=== PATIENT | male | born 1935 | race Caucasian/White ===

== ENCOUNTER 2016-08-24 10:57 | Inpatient (IN) | payer MEDICARE ==
[~2016-08-24] VITALS: Ht 180.3 cm; Wt 86.3 kg
[~2016-08-24 10:57] MED LIST: ACET-654 PO; ASPI1TAB PO; CARV3.12 PO; CARV6.25 PO; DOXA1TAB71 PO; DOXY100C PO; EPOG2000 INJ; FOSR1000 PO; HYDR-4267 PO; IPRA6SP; ISOS30TA4 PO; LISI-538 PO; LISI10TA4 PO; NEPHTA PO; NEPRLIQ3 PO; NITR4TASL SL; PANT40TA2 PO; PROM125TA PO; RENA800T7 PO; SENN-23 PO; SENN8.6T7 PO; SERT25TA85 PO; SODI650T PO; VITA-121 PO; VITA100066 PO; VITATAB11 PO
[2016-08-24] MEDS ORDERED: ONDANSETRON 4MG/2ML VIAL (J2405) As Ordered ONE (11:08)
[2016-08-24 11:28] LABS: BASO % 0.6 % (0.0-1.0); EOS # 0.3 K/mm3 (0.0-0.50); EOS % 3.4 % (0.0-3.0); LARGE UNSTAINED CELL # 0.2 K/mm3 (0.0-0.4); LARGE UNSTAINED CELL % 1.7 % (0.0-4.0); LYMPH # 0.8 K/mm3 (1.5-4.5); MEAN CORPUSCULAR HEMOGLOBIN 34.8 pg (27.0-33.0); MEAN CORPUSCULAR HGB CONC 33.2 g/dl (32.0-36.5); MONO # 0.6 K/mm3 (0.0-0.8); MONO % 6.6 % (0.0-5.0); NEUTROPHILS # 7.4 K/mm3 (1.8-7.7); NEUTROPHILS % 80.8 % (36.0-66.0); PLATELET COUNT, AUTOMATED 229 k/mm3 (150-450); RED CELL DISTRIBUTION WIDTH 15.4 % (11.5-14.5); WHITE BLOOD COUNT 9.1 K/mm3 (4.0-10.0)
--- NOTE | 2016-08-24 11:32 | REP ---
Chest one-view HISTORY: Chest pain Comparison: 05/29/2016 The lungs are clear. The heart is normal in size. The pulmonary vasculature is normal in appearance. A catheter is present in the superior vena cava. Impression: No acute disease. Signed by Jerad Sibley MD 08/24/2016 11:24 A
[2016-08-24 11:48] LABS: CALCIUM LEVEL 8.4 MG/DL (8.8-10.2); CREATININE FOR GFR 7.66 MG/DL (0.70-1.30); GLOMERULAR FILTRATION RATE 7.3 (>42); MAGNESIUM LEVEL 2.3 MG/DL (1.8-2.4); POTASSIUM SERUM 4.6 MEQ/L (3.5-5.1)
[2016-08-24] MEDS ORDERED: CARVedilol 6.25 MG TAB As Ordered ONE (12:31)
--- NOTE | 2016-08-24 12:32 | ECGEPIP ---
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
[2016-08-24] MEDS ORDERED: ACETAMINOPHEN TAB 650MG DOSE (2X325MG) PO PRN (13:00)
[2016-08-24] MEDS ORDERED: CARV6.25 PO (14:16)
[2016-08-24] MEDS ORDERED: LISI10TA4 PO (14:16)
[2016-08-24] MEDS ORDERED: HYDR10TAB PO (14:16)
[2016-08-24] MEDS ORDERED: CINA30TA PO (14:18)
[2016-08-24] MEDS ORDERED: IMOD2TAB16 PO (14:23)
[2016-08-24] MEDS ORDERED: FOSR1000 PO (14:25)
--- NOTE | 2016-08-24 14:28 | HPE ---
DATE OF ADMISSION: 08/24/2016 PRIMARY CARE PROVIDER: Shaun Brown MD HISTORY OF PRESENT ILLNESS: The patient is a 81-year-old male from [facility] who presented to [facility] on 08/24/2016 for worsening chest pain. The patient stated that he started having intermittent sharp chest pain located left upper chest near the sternum a few days ago. The pain came intermittent. This morning he had acute worsening of the chest pain when he tried to put on his jeans and he noticed the pain worsened with any type of exertion and any type of direct pressure to the area with worsening of the pain. The pain does not have any radiation to the neck or to the back to the shoulders. He had similar discomfort in the past and he came to [facility] emergency room at least twice in the last few months. He was diagnosed with atrial fibrillation two months ago. When the patient arrived to the emergency room, the patient had an irregular heart rate around 120-140s. [place] [facility] [place] [facility] [place] were given to the patient and that decreased the pain from 9 out of 10 to 2 out of 10. Additional nitroglycerin was given by emergency medical services (EMS) while the patient was en route and the patient was also given 324 mg aspirin. In the emergency room, labetalol was ordered and the hospitalist team was called for admission. ALLERGIES: 1. ALDACTONE. HOME MEDICATIONS: - Tylenol 650 mg by mouth every 4 hours as needed - aspirin 81 mg by mouth at bedtime - vitamin B complex one tablet by mouth daily - carvedilol 3.125 mg by mouth twice a day - vitamin D 1000 units by mouth at bedtime - senna S one tablet by mouth twice a day - ipratropium spray per nasal three times a day - isosorbide mononitrate 30 mg by mouth daily - Fosrenol 1000 mg by mouth - lisinopril 20 mg by mouth twice a day - nitroglycerin 0.4 mg sublingual as needed for chest pain - Protonix 40 mg by mouth at bedtime - Phenergan 12.5 mg by mouth twice a day as needed for nausea - sertraline 25 mg by mouth at bedtime PAST MEDICAL HISTORY: 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 Grade 2 diastolic dysfunction. End stage renal disease on hemodialysis. Depression. Gastroesophageal reflux disease (GERD). Vitamin D deficiency. Moderate aortic valve stenosis. PAST SURGICAL HISTORY: Dialysis catheter of the left chest. Hernia repair. SOCIAL HISTORY: Denies tobacco use. Denies alcohol use. Patient is DO NOT RESUSCITATE, DO NOT INTUBATE. REVIEW OF SYSTEMS: GENERAL: No fever. No chills. HEENT: No vision changes. No auditory changes. CARDIOVASCULAR: Complains of sharp chest pain of the left chest without any radiation intermittently. Got significantly worse this morning during exertion. History of atrial fibrillation started two months ago. The patient had systolic heart failure with ejection fraction of 15% and the patient also had grade 2 diastolic congestive heart failure. RESPIRATORY: Denies any shortness of breath. No cough or sputum production. GASTROINTESTINAL (GI): No nausea, no vomiting, no abdominal pain. NEUROLOGICAL: No numbness. No tingling. OBJECTIVE: VITAL SIGNS: Blood pressure 106/62, pulse is 120, respirations 20, temperature 97.2, pulse oximetry 98% in room air. Body weight is 82.55 kg. Body height is 180.34 cm. GENERAL: No signs of acute distress. Alert and oriented times three. HEENT: Normocephalic, atraumatic. Extraocular motors grossly intact. CARDIOVASCULAR: Irregularly irregular. Very distant heart sounds with a heart rate around 115 to 120s. RESPIRATORY: Decreased breath sounds, clear to auscultation bilaterally. ABDOMEN: Soft, nontender, nondistended. Bowel sounds present. No rebound. No guarding. EXTREMITIES: No edema. No signs of cyanosis. Dialysis catheter located left upper chest. NEUROLOGICAL: Sensation to fine touch grossly intact. Muscles strength 5/5. LABORATORY DATA: WBC 9.1, hemoglobin 11.5, hematocrit 34.8, platelet count is 229. Sodium is 140, potassium 4.6, chloride is 101, carbon dioxide 23, BUN 18, creatinine is 7.66, GFR 7.3. Fasting glucose 16, calcium 8.4, magnesium 2.3, total CK is 74, Troponin I is 0.09. IMAGING STUDIES: Chest x-ray showed no acute disease. ASSESSMENT/PLAN: 1. Chest pain. Patient was admitted to the PCU under observation status. The patient's chest pain is sharp without any radiation, is worsened by exertion and direct pressure. It more resembles a musculoskeletal pain, however there is concern to rule out any cardiac related causes. We will follow with Troponin. The patient did have atrial fibrillation. 2. Atrial fibrillation. The patient was diagnosed with atrial fibrillation two months ago. The patient is taking Coreg 3.125 mg by mouth twice a day at baseline. Labetalol was given in the emergency room. Will continue to watch the heart rate. If the heart rate is not controlled we will adjust the beta-dung dosage. The patient will benefit from anticoagulation if the patient has persistent atrial fibrillation. 3. Systolic and diastolic congestive heart failure (CHF). The patient has ejection fraction of 15% and grade 2 diastolic dysfunction. Currently the patient is compensated. 4. End stage renal disease on dialysis. The patient's dialysis days are Monday, Monday, and Monday. Will consult Dr. Neely for the patient's dialysis. 5. Anemia of chronic disease. Currently hemoglobin and hematocrit at baseline. Hemoglobin of 11.1, hematocrit 34.8. 6. Deep vein thrombosis (DVT) prophylaxis. The patient is on heparin at this time.
[2016-08-24] MEDS ORDERED: CALC1CAP PO (14:32)
[2016-08-24] MEDS ORDERED: PROMETHAZINE 25 MG TAB PO PRN (14:45)
[2016-08-24] MEDS ORDERED: NITROGLYCERIN 0.4 MG SUBL TABLET SL PRN (14:45)
[2016-08-24] MEDS ORDERED: LOPERAMIDE 2 MG CAP PO PRN (14:45)
[2016-08-24] MEDS: CALCIUM ACETATE 667 MG GELCAP PO SCH ×2 (17:30→22:20)
--- NOTE | 2016-08-24 18:21 | ECGEPIP ---
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
[2016-08-24] MEDS: LANTHANUM CARBONATE 500 MG CHEW TABLET PO SCH (18:30)
[2016-08-24 20:00] VITALS: BP 148/85
[2016-08-24] MEDS: HEPARIN SOD (PORCINE) 5000 UNITS/ML VIAL SC SCH ×2 (20:52→22:09)
[2016-08-24] MEDS: IPRATROPIUM 0.06% NASAL SPRAY 15 ML (ATROVENT) SCH ×2 (20:52→22:10)
[2016-08-24] MEDS ORDERED: METOPROLOL TART 25 MG TABLET As Ordered ONE (21:42)
[2016-08-24] MEDS ORDERED: LISINOPRIL 10 MG TAB As Ordered ONE (21:42)
[2016-08-24] MEDS ORDERED: SERTRALINE HCL 25 MG TABLET As Ordered ONE (21:43)
[2016-08-24] MEDS: METOPROLOL TART 25 MG TABLET PO SCH (22:11)
[2016-08-24] MEDS: SERTRALINE HCL 25 MG TABLET PO SCH (22:12)
[2016-08-24] MEDS: LISINOPRIL 10 MG TAB PO SCH (22:12)
[2016-08-24] MEDS: VITAMIN D 1,000 INTERNATIONAL UNITS TABLET PO SCH (22:35)
[2016-08-25] VITALS (8 sets, daily range): BP systolic 108–174; BP diastolic 53–80
[2016-08-25] MEDS ORDERED: HEPARIN SOD (PORCINE) 5000 UNITS/ML VIAL As Ordered ONE ×2 (06:24→11:58)
[2016-08-25] MEDS: HEPARIN SOD (PORCINE) 5000 UNITS/ML VIAL SC SCH (06:27)
--- NOTE | 2016-08-25 07:06 | IPN ---
DATE: 08/24/2016 Mr. Hazel is seen during hemodialysis this afternoon. He was admitted earlier due to atrial fibrillation and chest pain. The patient has known history of end-stage renal disease and receives hemodialysis on Monday, Monday and Monday schedule and he was due for his dialysis today. He is tolerating dialysis well and denies any chest pain or dyspnea at present. He already converted to sinus rhythm prior to starting dialysis today. On physical exam, the patient is awake and alert and without any acute distress. Temperature is 98 degrees Fahrenheit, heart rate 80 per minute and respiratory rate 18 per minute. Blood pressure is 106/58 mmHg. His head is atraumatic. Ears, nose and throat are unremarkable. Neck veins are not abnormally distended. His neck is supple and without any thyroid enlargement. Trachea is midline. Heart sounds are now regular and distant. Lungs with good bilateral air entry and without wheezing or rales. Abdomen is soft and nontender and bowel sounds are normal. There is no palpable organomegaly. Extremities have no cyanosis or clubbing. Neurologically, he is awake, alert and oriented times three. Today's labs show WBC count 9.1, hemoglobin 11.5 and hematocrit 34.8. Sodium 140 and potassium 4.6. BUN 80 and creatinine 7.66. PROBLEMS: 1. End-stage renal disease. The patient is currently being dialyzed. We will complete his full treatment for 3-1/2 hours. 2. Congestive heart failure. The patient had rapid atrial fibrillation which may have contributed to his congestive heart failure in addition to end-stage renal disease. We are removing about 3 liters of fluid as tolerated. 3. Chest pain and atrial fibrillation. The patient does have history of paroxysmal atrial fibrillation. At present, he has already converted back to sinus rhythm. 4. Anemia. His anemia is mild and does not need any intervention at present.
[2016-08-25 07:44] LABS: MEAN CORPUSCULAR HEMOGLOBIN 33.8 pg (27.0-33.0); MEAN CORPUSCULAR HGB CONC 31.7 g/dl (32.0-36.5); MEAN CORPUSCULAR VOLUME 106.6 fl (80.0-96.0); PLATELET COUNT, AUTOMATED 205 k/mm3 (150-450); RED CELL DISTRIBUTION WIDTH 15.1 % (11.5-14.5); WHITE BLOOD COUNT 7.6 K/mm3 (4.0-10.0)
--- NOTE | 2016-08-25 08:16 | CR ---
DATE OF CONSULTATION: 08/24/2016 REFERRING PHYSICIAN: Adela Crowe DO Mr. Hazel is a 81-year-old gentleman who was sent to emergency room from [facility] facility due to chest pain and rapid atrial fibrillation. He was treated in the emergency room where he has already converted to sinus rhythm and his chest pain has already resolved. Patient is due for hemodialysis today, due to which a nephrology consultation was requested. He denies any fever or chills. There is no pleuritic type of pain, cough or hemoptysis. He reports that he has had similar episodes twice previously. PAST MEDICAL AND SURGICAL HISTORY: Significant for: 1. Combined systolic and diastolic congestive heart failure with ejection fraction of 15%. 2. End-stage renal disease. 3. Depression. 4. Moderate aortic valve stenosis. 5. History of gastroesophageal reflux disease. 6. Vitamin D deficiency. 7. Anemia. Past surgical history is significant for arteriovenous (AV) fistula creation, which never developed, hernia repair and a PermaCath placement. PERSONAL AND SOCIAL HISTORY: Patient is currently a resident of assisted living. He does not smoke or drink. Family history is negative for end-stage renal disease. MEDICATIONS: His chronic medications include: - aspirin 81 mg daily - multivitamin one tablet daily - Carvedilol 3.125 mg twice a day - vitamin D 1000 units daily - Senokot one tablet twice a day - isosorbide 30 mg daily - PhosLo one capsule three times a day with meals - lisinopril 20 mg daily - Protonix 40 mg at bedtime - Zoloft 25 mg at bedtime ALLERGIES: She has allergy to ALDACTONE. REVIEW OF SYSTEMS: Patient reports sudden onset of palpitations and chest pressure. He denies any fever or chills. Ears, nose and throat are unremarkable. Respiratory system is negative for cough or hemoptysis. Gastrointestinal (GI) system is negative for nausea, vomiting or diarrhea. Genitourinary () system is negative for dysuria or hematuria. Endocrine system is negative for diabetes or thyroid problems. Hematological system is negative for chronic anticoagulation. He does have anemia of chronic kidney disease. Psychosocial system is significant for depression and noncompliance. Neurological system is negative for seizures. Skin is negative for rash or ulcers. PHYSICAL EXAMINATION: Patient is awake and alert. His temperature is 98 degrees Fahrenheit, heart rate 68 per minute and respiratory rate 18 per minute. Blood pressure 110/60 mmHg. Head is atraumatic. He has an internal jugular vein catheter on the right side for dialysis. There is no sign of infection or bleeding. Neck veins are mildly distended. Pupils are equal and reactive to light and sclera is anicteric. Ears, nose and throat are unremarkable. Heart sounds are regular at present and lungs clear to auscultation. Abdomen is soft and nontender, and without any palpable organomegaly. Extremities have no cyanosis or clubbing. Neurologically, he is awake, alert and oriented times three. PROBLEMS: 1. End-stage renal disease. Patient is due for hemodialysis today. We will plan to dialyze him this afternoon. 2. Chronic systolic and diastolic congestive heart failure. Patient does have history of severely decreased ejection fraction of 15% in addition to diastolic congestive heart failure. At present, his volume status is only mildly decompensated. We will plan to dialyze him and remove about 3 liters of fluid today. 3. Chest pain and atrial fibrillation. Most likely these were related and his chest pain and atrial fibrillation has already resolved. Patient has converted back to sinus rhythm. 4. Anemia. His anemia is mild and does not need any specific intervention. I thank you for involving me in the care of Mr. Hazel. I will follow him along with you.
[2016-08-25] MEDS: LANTHANUM CARBONATE 500 MG CHEW TABLET PO SCH ×3 (08:30→18:38)
[2016-08-25] MEDS: CINACALCET 30 MG TAB (SENSIPAR) PO SCH (08:35)
[2016-08-25] MEDS: VITAMIN B COMPLEX/VIT C CAP PO SCH (08:35)
[2016-08-25] MEDS: PANTOPRAZOLE 40MG TAB (PROTONIX) PO SCH (08:35)
[2016-08-25] MEDS: LISINOPRIL 10 MG TAB PO SCH ×2 (08:36→20:48)
[2016-08-25] MEDS: ISOSORBIDE MON. (IMDUR) 30 MG XR TAB PO SCH (08:36)
[2016-08-25] MEDS: ASPIRIN 81 MG ENTERIC TAB PO SCH (08:36)
[2016-08-25] MEDS: METOPROLOL TART 25 MG TABLET PO SCH ×2 (08:36→20:48)
[2016-08-25 08:55] LABS: CALCIUM LEVEL 8.9 MG/DL (8.8-10.2); CREATININE FOR GFR 5.33 MG/DL (0.70-1.30); GLOMERULAR FILTRATION RATE 11.1 (>42)
[2016-08-25 09:23] LABS: BASO # 0.1 K/mm3 (0.0-0.2); BASO % 0.7 % (0.0-1.0); EOS # 0.3 K/mm3 (0.0-0.50); EOS % 4.5 % (0.0-3.0); LARGE UNSTAINED CELL # 0.3 K/mm3 (0.0-0.4); LARGE UNSTAINED CELL % 3.5 % (0.0-4.0); LYMPH # 0.7 K/mm3 (1.5-4.5); LYMPH % 9.2 % (24.0-44.0); MONO # 0.5 K/mm3 (0.0-0.8); MONO % 6.9 % (0.0-5.0); NEUTROPHILS # 5.7 K/mm3 (1.8-7.7); NEUTROPHILS % 75.4 % (36.0-66.0)
[2016-08-25 09:26] LABS: ALBUMIN 3.5 GM/DL (3.2-5.2); BILIRUBIN,TOTAL 0.4 MG/DL (0.2-1.0); MAGNESIUM LEVEL 2.1 MG/DL (1.8-2.4)
[2016-08-25 10:43] LABS: PHOSPHORUS LEVEL 6.2 MG/DL (2.5-4.9)
[2016-08-25] MEDS: IPRATROPIUM 0.06% NASAL SPRAY 15 ML (ATROVENT) SCH ×3 (10:43→21:15)
[2016-08-25] MEDS ORDERED: CLOPIDOGREL 75 MG TAB PO ONE (11:15)
[2016-08-25 11:43] LABS: MEAN CORPUSCULAR HEMOGLOBIN 34.6 pg (27.0-33.0); MEAN CORPUSCULAR HGB CONC 33.6 g/dl (32.0-36.5); MEAN CORPUSCULAR VOLUME 103.2 fl (80.0-96.0); RED CELL DISTRIBUTION WIDTH 14.5 % (11.5-14.5); WHITE BLOOD COUNT 8.1 K/mm3 (4.0-10.0)
[2016-08-25] MEDS ORDERED: HEPARIN 25,000 UNITS/250 ML D5W BAG (100 UNITS/ML) As Ordered ONE (11:58)
[2016-08-25] MEDS ORDERED: ATORVASTATIN 20 MG TAB As Ordered ONE (11:58)
[2016-08-25] MEDS ORDERED: CLOPIDOGREL 75 MG TAB As Ordered ONE (11:58)
[2016-08-25] MEDS ORDERED: HEPARIN SOD (PORCINE) 5000 UNITS/ML VIAL IV ONE (12:00)
[2016-08-25] MEDS: HEPARIN DRIP 25,000 UNITS in APPROPRIATE DILUENT 1 EA IV SCH (12:05)
[2016-08-25] MEDS: ATORVASTATIN 20 MG TAB PO SCH (12:07)
[2016-08-25] MEDS: CALCIUM ACETATE 667 MG GELCAP PO SCH ×2 (12:09→18:39)
--- NOTE | 2016-08-25 13:29 | IPN ---
DATE: 08/25/2016 Mr. Hazel is seen this morning on his bedside. He still in the emergency room. He was admitted with chest pain and rapid atrial fibrillation. He has converted back to sinus rhythm. Yesterday afternoon, his troponin went up to 2.2. At present, he denies any dyspnea, chest pain, palpitations, nausea, vomiting, fever or chills. He underwent hemodialysis yesterday afternoon, which he tolerated very well. On physical exam, temperature 97.5 degrees Fahrenheit, heart rate 70 per minute and respiratory rate 18 per minute. Blood pressure 131/63 mmHg and oxygen saturation 94% on room air. His head is atraumatic. Ears, nose and throat are unremarkable. Pupils are equal and reactive to light and sclera is anicteric. Neck is supple and without jugular venous distention (JVD) or thyroid enlargement. Heart sounds are regular and lungs clear to auscultation bilaterally. Abdomen soft and nontender and without a palpable organomegaly. Bowel sounds are normal. Extremities have no cyanosis or clubbing. Skin has no rash or ulcers. Neurologically, he is awake, alert and oriented times three. Today's labs show WBC count 7.6, hemoglobin 12.6 and hematocrit 39.7. Platelets 205. Sodium is 140 and potassium 5.0. CO2 25, BUN 43 and creatinine 5.33. This morning, CPK is 79 and troponin is now 2.26. PROBLEMS: 1. End-stage renal disease. Patient was dialyzed yesterday and he will be due for next hemodialysis tomorrow. At present, his volume status is well compensated and electrolytes are within normal range. We will schedule his dialysis for tomorrow. 2. Chest pain and rapid atrial fibrillation. Patient is now back in sinus rhythm and chest pain has resolved. He does have slightly elevated troponin, though his CPKs are within normal range. I will defer to hospitalist service about a decision for discharge or continued monitoring. 3. Congestive heart failure. Patient is known to have chronic systolic congestive heart failure. At present, his volume status is very well compensated and we will plan to dialyze him tomorrow. 4. Hyperphosphatemia. Patient has history of chronic severe hyperphosphatemia, which is related to dietary noncompliance and intolerance to phosphate binders. I will add phosphorus level to his labs. I am going to cut down his Fosrenol dose to 1000 mg three times a day.
--- NOTE | 2016-08-25 15:43 | IPNPDOC ---
Text Note Date of Service The patient was seen on 08/25/16. NOTE Subjective: Patient is a 81 year old male with a PMHx of Systolic and Diastolic CHF (EF: 15%), atrial fibrillation (refused anticoagulation), ESRD on HD (MWF), Depression, GERD, Vitamin D deficiency and moderate aortic valve stenosis who presented to the ED from [facility] because of chest pain. He was experiencing typical chest pain until he received nitroglycerin. In the ER he was found to have a. fib with RVR and was given labetolol, after which he reverted to sinus rhythm. Patient was seen and examined at the bedside. Currently he denied any chest pain , shortness of breath, palpitations. Objective: Vitals (See below) General: Lying in bed, no acute distress, comfortable, AAOx3 HEENT: NC, AT CVS: RRR, +S1S2 Lungs: Fair air entry b/l, -w/r/r Abdomen: Soft, ND, NT, +BSx4 Extremities: +PPx4, -edema, -calf tenderness Assessment and plan: 1. Chest pain - possibly 2/2 NSTEMI - Presented with typical chest pain - Physical unrevealing - EKG revealed a.fib with RVR - Will repeat EKG - Troponins have trended up to 2.26 - Discussed with cardiology (Dr. Holt); patient does not want any procedures at this time - refused to be transferred; at this point we will continue with medical management as an inpatient - c/w ASA, Metoprolol, Lisinopril - Started Plavix (loading dose), atorvastatin and heparin drip (will continue for 48 hours) - Patient is aware of risks of not receiving procedures; which may include sudden from arrhythmias 2. A. fib with RVR - possibly 2/2 NSTEMI, possibly 2/2 medication non-compliance - Patient has reverted back to sinus - will c/w rate control with metoprolol 25 BID - patient has refused to be on full anticoagulation in the past as an outpatinent - As an inpatient; he will be on heparin drip for NSTEMI - however, will not continue with anticoagulation as outpatient per patient request - Patient is aware of risks of not continuing anticoagulation; including blood clots which may cause stroke or sudden 2. Compensated systolic and diastolic CHF (EF of 15% / Stage 2 diastolic dysfunction) - No evidence of exacerbation at this time - Patient has refused to have AICD / Biventricular PM placed in the past - Will c/w Lisinopril, Metoprolol 3. ESRD on HD ([facility]) - Dr. Neely (Nephrology) on consult - appreciate their input 4. Macrocytic anemia - Hg stable - Will continue to follow 5. DVT prophylaxis - is on full anticoagulation with heparin drip VS,Fishbone, I+O VS, Fishbone, I+O Laboratory Tests 08/25/16 07:13 Calcium Level 8.9, Phosphorus Level 6.2 H, Aspartate Amino Transf (AST/SGOT) 33 , Alanine Aminotransferase (ALT/SGPT) 34, Total Creatine Kinase 82, Alkaline Phosphatase 142 H, Total Bilirubin 0.4, Total Protein 7.0, Albumin 3.5, Red Blood Count 3.72 L, Mean Corpuscular Volume 106.6 H, Mean Corpuscular Hemoglobin 33.8 H, Mean Corpuscular Hemoglobin Concent 31.7 L, Red Cell Distribution Width 15.1 H 08/25/16 11:35 Red Blood Count 3.51 L, Mean Corpuscular Volume 103.2 H, Mean Corpuscular Hemoglobin 34.6 H, Mean Corpuscular Hemoglobin Concent 33.6, Red Cell Distribution Width 14.5 Vital Signs Date Time Temp Pulse Resp B/P Pulse Ox O2 Delivery O2 Flow Rate FiO2 08/25/16 12:06 98.0 56 18 174/79 96 Room Air I&O- Last 24 Hours up to 6 AM 08/25/16 06:00 Output Total 2500 ml Balance -2500 ml IDA CARDONA MD Aug 25, 2016 15:22
--- NOTE | 2016-08-25 17:08 | EDDOCDS ---
Nurse's Notes [facility] Name: Jose Hazel Age: 81 yrs Sex: Male : 1935 Arrival Date: 08/24/2016 Time: 10:57 Bed Admit Hold Private MD: Stephanie Diagnosis: Angina pectoris, unspecified;Unspecified atrial fibrillation Presentation: 08/24 11:01 Presenting complaint: EMS states: resident of [facility] on assisted living side. Dialysis pt. jo3 Admits to having intermittent CP on exertion for several days but it worsened this morning. Accompanied by exertional SOB. 2 nitro SL given by [facility] staff with decreased pain from 9 to 210. 1 additional Nitro given by EMS and pain resolved but returned on arrival to [facility] ED. 324mg ASA also given and 4 mg Zofran given for 1 episode of vomiting. Pt has history of afib. 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 Adult Sepsis Screening: The patient does not have new or worsening altered mentation. Suicide/Homicide risk assessment- the patient denies having any suicidal and/or homicidal ideations and does not present with any other emotional, behavioral or mental health complaints. Status: Patient is not a dining services manager or dependent. Transition of care: patient was received from [facility]-assisted. 11:01 Acuity: RADHIKA Level 2 jo3 11:01 Method Of Arrival: Ambulance jo3 Triage Assessment: 11:20 General: Appears in no apparent distress, Behavior is appropriate for age, cooperative, jo3 pleasant. Historical: - Allergies: Aldactone; - Home Meds: 1. acetaminophen 325 mg Oral tab 2 tabs every 4-6 hours 2. aspirin 81 mg Oral chew 1 tab once daily 3. Cardura 2 mg Oral tab 1 tab once daily 4. Coreg 3.125 mg Oral tab 1 tab 2 times per day 5. lanthanum 1,000 mg oral chew 1 tab 3 times per day after each meal 6. Imodium 2 mg Oral cap 2 caps as needed 7. Atrovent 0.06 % Nasal spry 2 sprays 3 times per day 8. lisinopril 20 mg Oral tab 1 tab twice a day 9. Imdur 30 mg Oral Tb24 1 tab once daily 10. nephro carb 0.08-1.80 gram-kcal/ml 240 mL daily 11. vitamin B complex oral tab daily 12. Zoloft 25 mg Oral tab 1 tab once daily 13. Protonix 40 mg Oral TbEC 1 tab once daily 14. Phenergan 12.5 mg Oral tab 1 tab 2 times per day 15. Vitamin D3 1,000 unit oral cap daily 16. nitroglycerin 0.4 mg SL subl 1 tab every 5 minutes - PMHx: Anemia; Cardiomyopathy; chronic systolic heart failure; Diabetes - NIDDM: controlled; ESRD; gastrointestinal hemorrhage; Major Depressive Disorder; pancytopenia; Renal Failure with Dialysis; systolic and diastolic heart failure; Vitamin D deficiency; - PSHx: Hernia repair; dialysis cath left chest; - Social history: No barriers to communication noted, The patient speaks fluent Lao, Speaks appropriately for age. - Family history: Not pertinent. - Exposure Risk Screening:: None identified. Screenin:30 Screening information is obtained from the patient. Fall risk: No risks identified. jo3 Assistance ADL's: Requires assistance with medication administration, assistance is provided by residence staff. Abuse/DV Screen: The patient / caregiver reports he/she is: not in a situation that causes fear, pain or injury. Nutritional screening: No deficits noted. Advance Directives:. home support is adequate. Assessment: 11:30 General: Appears in no apparent distress, comfortable, Behavior is appropriate for age, jo3 cooperative, pleasant. Neurological: Level of Consciousness is awake, alert, Oriented to person, place, time, Speech is normal, Facial symmetry appears normal, Pupils are PERRLA, Reports Dizziness prior to arrival. Thinks it was after Nitro administration . Cardiovascular: Rhythm is sinus tachycardia Chest pain is located in left anterior radiates Does not radiate. episodes are continuous Chest pain began 2-3 days ago. Respiratory: Airway is patent Respiratory effort is even, unlabored, Breath sounds are diminished bilaterally. Derm: Skin is pink, warm & dry. 12:25 Reassessment: Patient appears in no apparent distress at this time. Patient states jo3 feeling better. Patient states symptoms have improved. Pt resting quietly on stretcher. reports that pain and nausea are decreased at this time. Awaiting results for disposition. aware of plan of care . 13:00 Reassessment: Patient appears in no apparent distress at this time. Dr Crowe in to see jo3 pt at this time. awaiting admission to PCU. aware of plan . 13:30 Reassessment: Patient appears in no apparent distress at this time. Patient states js13 feeling better. Patient states symptoms have improved. Converted to NSR. EKG obtained. Awaiting admission. Aware of plan of care . 14:05 General: Appears in no apparent distress, comfortable, Behavior is appropriate for age, jo3 cooperative. General: Taken to dialysis at this time. Aware of plan of care . Neurological: Level of Consciousness is awake, alert, Oriented to person, place, time. Cardiovascular: Rhythm is sinus rhythm No ectopy. Derm: Skin is pink, warm & dry. Vital Signs: 11:12 BP 99 / 63 (auto/); jo3 11:12 Pulse 122 MON; Resp 20; Temp 97.2(O); Pulse Ox 98% ; Weight 82.55 kg; Height 5 ft. 11 jo3 in. (180.34 cm); Pain 4/10; 11:12 BP 99 / 63 (auto/); jo3 11:12 Pulse 122 MON; Pulse Ox 98% ; jo3 11:22 BP 109 / 62 (auto/); jo3 11:22 Pulse 120 MON; Pulse Ox 98% ; jo3 11:22 BP 109 / 62 (auto/); jo3 11:22 Pulse 120 MON; Pulse Ox 98% ; jo3 11:37 BP 112 / 77 (auto/); jo3 11:37 Pulse 124 MON; Pulse Ox 94% ; jo3 11:52 BP 98 / 74 (auto/); jo3 11:52 Pulse Ox 94% ; jo3 12:07 BP 134 / 84 (auto/); jo3 12:07 Pulse 114 MON; Pulse Ox 95% ; jo3 12:22 BP 147 / 58 (auto/); jo3 12:22 Pulse 108 MON; Pulse Ox 97% ; jo3 13:03 BP 115 / 70 (auto/); jo3 13:03 Pulse 116 MON; Pulse Ox 99% ; jo3 13:35 BP 123 / 63 (auto/); jo3 13:35 Pulse 72 MON; Pulse Ox 99% ; jo3 11:12 Body Mass Index 25.38 (82.55 kg, 180.34 cm) jo3 Vitals: 11:25 Log In Time N/A - ambulance arrival. jo3 11:28 Log In Time N/A - ambulance arrival. jo3 ED Course: 10:57 Patient visited by Katherine Head, Aquatic Life Laborer. lbd 10:57 Patient moved to Waiting lbd 10:58 Stephanie is Private Physician. lbd 10:58 Patient moved to 4 lbd 11:04 Triage Initiated jo3 11:10 Patient visited by Mandeep Rosario. jml1 11:10 EKG done. (by ED staff). Reviewed by Feliz Flores MD. jml1 11:22 Inserted peripheral IV: 16gauge IV in right forearm and blood collected. Patient ml6 tolerated the procedure well. Labs drawn. (by ED staff). Sent per order to lab. 11:25 BNP Sent. jo3 11:30 The patient / caregiver is instructed regarding the plan of care and ED course. Cardiac jo3 monitor on. Pulse ox on. NIBP on. 11:34 Patient visited by Shani Smith RN. jo3 11:34 MAGNESIUM LEVEL Sent. jo3 12:10 portable chest Returned. EDMS 12:13 [facility] ke 12:13 Patient visited by Blayne Hansen FNP. ke 12:13 Patient visited by Blayne Hansen FNP. ke 12:26 Adela Crowe is Hospitalizing Provider. ke 12:47 EKG-ADULT Returned. EDMS 13:00 Patient visited by Shani Smith RN. jo3 13:23 Patient visited by Mandeep Rosario. jml1 13:23 EKG done. (by ED staff). Reviewed by Blayne XAVIER. jml1 13:31 Patient visited by Shani Hammond RN. js13 14:16 Patient visited by Shani Smith RN. jo3 14:30 [facility] Payment Agreement was scanned into [employer] and attached to record. mm15 14:49 Patient moved to 19 jo3 15:12 T-Sheet-- Draft Copy was scanned into [employer] and attached to record. gb 19:02 EKG-ADULT Returned. EDMS 19:34 Patient moved to Admit Hold [facility] 08/25 06:59 Steve Tinoco MD is Attending Physician. pc 14:52 PCR was scanned into [employer] and attached to record. gb Administered Medications: 08/24 12:35 Drug: carvedilol 3.125 mg Route: PO; jo3 Order Results: Lab Order: Basic Metabolic Profile; SPEC'M 08/24/17 11:16 Test: GLUCOSE, FASTING; Value: 136; Range: 83-110; Abnormal: Above high normal; Units: MG/DL; Status: F Test: BLOOD UREA NITROGEN; Value: 80; Range: 7-18; Abnormal: Above high normal; Units: MG/DL; Status: F Test: CREATININE FOR GFR; Value: 7.66; Range: 0.70-1.30; Abnormal: Above high normal; Units: MG/DL; Status: F Test: GLOMERULAR FILTRATION RATE; Value: 7.3; Range: >42; Abnormal: Below low normal; Status: F Test: SODIUM LEVEL; Value: 140; Range: 136-145; Units: MEQ/L; Status: F Test: POTASSIUM SERUM; Value: 4.6; Range: 3.5-5.1; Units: MEQ/L; Status: F Test: CHLORIDE LEVEL; Value: 101; Range: 98-107; Units: MEQ/L; Status: F Test: CARBON DIOXIDE LEVEL; Value: 23; Range: 21-32; Units: MEQ/L; Status: F Test: ANION GAP; Value: 16; Range: 8-16; Units: MEQ/L; Status: F Test: CALCIUM LEVEL; Value: 8.4; Range: 8.8-10.2; Abnormal: Below low normal; Units: MG/DL; Status: F Test Note: ; Units are mL/min/1.73 m2 Chronic Kidney Disease Staging per NKF: Stage I & II GFR >=60 Normal to Mildly Decreased Stage III GFR 30-59 Moderately Decreased Stage IV GFR 15-29 Severely Decreased Stage V GFR <15 Very Little GFR Left ESRD GFR <15 on ONLINE ADVERTISING DIRECTOR Lab Order: CBC with Diff; SPEC08/24/16 11:16 Test: WHITE BLOOD COUNT; Value: 9.1; Range: 4.0-10.0; Units: K/mm3; Status: F Test: RED BLOOD COUNT; Value: 3.31; Range: 4.30-6.10; Abnormal: Below low normal; Units: M/mm3; Status: F Test: HEMOGLOBIN; Value: 11.5; Range: 14.0-18.0; Abnormal: Below low normal; Units: g/dl; Status: F Test: HEMATOCRIT; Value: 34.8; Range: 42.0-52.0; Abnormal: Below low normal; Units: %; Status: F Test: MEAN CORPUSCULAR VOLUME; Value: 105.0; Range: 80.0-96.0; Abnormal: Above high normal; Units: fl; Status: F Test: MEAN CORPUSCULAR HEMOGLOBIN; Value: 34.8; Range: 27.0-33.0; Abnormal: Above high normal; Units: pg; Status: F Test: MEAN CORPUSCULAR HGB CONC; Value: 33.2; Range: 32.0-36.5; Units: g/dl; Status: F Test: RED CELL DISTRIBUTION WIDTH; Value: 15.4; Range: 11.5-14.5; Abnormal: Above high normal; Units: %; Status: F Test: PLATELET COUNT, AUTOMATED; Value: 229; Range: 150-450; Units: k/mm3; Status: F Test: NEUTROPHILS %; Value: 80.8; Range: 36.0-66.0; Abnormal: Above high normal; Units: %; Status: F Test: LYMPH %; Value: 7.0; Range: 24.0-44.0; Abnormal: Below low normal; Units: %; Status: F Test: MONO %; Value: 6.6; Range: 0.0-5.0; Abnormal: Above high normal; Units: %; Status: F Test: EOS %; Value: 3.4; Range: 0.0-3.0; Abnormal: Above high normal; Units: %; Status: F Test: BASO %; Value: 0.6; Range: 0.0-1.0; Units: %; Status: F Test: LARGE UNSTAINED CELL %; Value: 1.7; Range: 0.0-4.0; Units: %; Status: F Test: NEUTROPHILS #; Value: 7.4; Range: 1.8-7.7; Units: K/mm3; Status: F Test: LYMPH #; Value: 0.8; Range: 1.5-4.5; Abnormal: Below low normal; Units: K/mm3; Status: F Test: MONO #; Value: 0.6; Range: 0.0-0.8; Units: K/mm3; Status: F Test: EOS #; Value: 0.3; Range: 0.0-0.50; Units: K/mm3; Status: F Test: BASO #; Value: 0.0; Range: 0.0-0.2; Units: K/mm3; Status: F Test: LARGE UNSTAINED CELL #; Value: 0.2; Range: 0.0-0.4; Units: K/mm3; Status: F Lab Order: Cardiac Injury Profile; [facility]08/24/16 11:16 Test: CPK CREATINE PHOSPHOKINASE; Value: 74; Range: 39-308; Units: U/L; Status: F Test: CK-MB VALUE MASS; Value: 3.5; Range: 0.0-3.6; Units: NG/ML; Status: F Test: MB/CK RELATIVE INDEX; Value: 4.72; Range: < OR =4; Abnormal: Above high normal; Status: F Test Note: ; DIAGNOSIS CRITERIA MMB ng/ml Relative Index (RI) NON-AMI < or = 5 N/A HO ZONE > 5 < or = 4 AMI > 5 > 4 Lab Order: Troponin; 08/24/16 11:16 Test: TROPONIN I; Value: 0.09; Range: < 0.10; Units: NG/ML; Status: F Test Note: ; Troponin I Reference Interval for [employer] LOCI: 99th Percentile= 0.00-0.045 ng/ml Risk Stratification: <= 0.10 ng/ml Decreased Risk for Adverse Clinical Events. 0.10-1.50 ng/ml Increased Risk for Adverse Clinical Events. Evaluation of additional criterion and/or repeat testing in 2-6 hours is suggested to rule out myocardial damage. >= 1.50 ng/ml Indicative of Myocardial Injury. Lab Order: BNP; 08/24/16 10:52 Test: BRAIN NATRIURETIC PEPTIDE; Value: 1280; Range: <100; Abnormal: Above high normal; Units: PG/ML; Status: F Lab Order: MAGNESIUM LEVEL; 08/24/16 11:16 Test: MAGNESIUM LEVEL; Value: 2.3; Range: 1.8-2.4; Units: MG/DL; Status: F Lab Order: CARDIAC MARKER PANEL; 08/24/16 18:48 Test: CPK CREATINE PHOSPHOKINASE; Value: 108; Range: 39-308; Units: U/L; Status: F Test: CK-MB VALUE MASS; Value: 10.7; Range: 0.0-3.6; Abnormal: Above high normal; Units: NG/ML; Status: F Test: MB/CK RELATIVE INDEX; Value: 9.90; Range: < OR =4; Abnormal: Above high normal; Status: F Test: TROPONIN I; Value: 1.33; Range: < 0.10; Abnormal: High; Units: NG/ML; Status: F Test Note: ; DIAGNOSIS CRITERIA MMB ng/ml Relative Index (RI) NON-AMI < or = 5 N/A HO ZONE > 5 < or = 4 AMI > 5 > 4 Lab Order: HEMOGLOBIN A1C; [facility]' 08/24/16 13:15 Test: HEMOGLOBIN A1c; Value: 5.0; Range: 4.5-6.2; Units: %; Status: F Test: ESTIMATED AVERAGE GLUCOSE; Value: 97; Range: 60-110; Units: MG/DL; Status: F Lab Order: COMPLETE BLOOD COUNT; [facility]' 08/25/16 07:13 Test: WHITE BLOOD COUNT; Value: 7.6; Range: 4.0-10.0; Units: K/mm3; Status: F Test: RED BLOOD COUNT; Value: 3.72; Range: 4.30-6.10; Abnormal: Below low normal; Units: M/mm3; Status: F Test: HEMOGLOBIN; Value: 12.6; Range: 14.0-18.0; Abnormal: Below low normal; Units: g/dl; Status: F Test: HEMATOCRIT; Value: 39.7; Range: 42.0-52.0; Abnormal: Below low normal; Units: %; Status: F Test: MEAN CORPUSCULAR VOLUME; Value: 106.6; Range: 80.0-96.0; Abnormal: Above high normal; Units: fl; Status: F Test: MEAN CORPUSCULAR HEMOGLOBIN; Value: 33.8; Range: 27.0-33.0; Abnormal: Above high normal; Units: pg; Status: F Test: MEAN CORPUSCULAR HGB CONC; Value: 31.7; Range: 32.0-36.5; Abnormal: Below low normal; Units: g/dl; Status: F Test: RED CELL DISTRIBUTION WIDTH; Value: 15.1; Range: 11.5-14.5; Abnormal: Above high normal; Units: %; Status: F Test: PLATELET COUNT, AUTOMATED; Value: 205; Range: 150-450; Units: k/mm3; Status: F Lab Order: CARDIAC MARKER PANEL; [facility]' 08/24/16 22:50 Test: CPK CREATINE PHOSPHOKINASE; Value: 89; Range: 39-308; Units: U/L; Status: F Test: CK-MB VALUE MASS; Value: 9.8; Range: 0.0-3.6; Abnormal: Above high normal; Units: NG/ML; Status: F Test: MB/CK RELATIVE INDEX; Value: 11.01; Range: < OR =4; Abnormal: Above high normal; Status: F Test: TROPONIN I; Value: 2.02; Range: < 0.10; Abnormal: Critical Delta High; Units: NG/ML; Status: F Test Note: ; DIAGNOSIS CRITERIA MMB ng/ml Relative Index (RI) NON-AMI < or = 5 N/A HO ZONE > 5 < or = 4 AMI > 5 > 4 Lab Order: CARDIAC MARKER PANEL; [facility]' 08/25/16 07:13 Test: CPK CREATINE PHOSPHOKINASE; Value: 79; Range: 39-308; Units: U/L; Status: F Test: CK-MB VALUE MASS; Value: 7.4; Range: 0.0-3.6; Abnormal: Above high normal; Units: NG/ML; Status: F Test: MB/CK RELATIVE INDEX; Value: 9.36; Range: < OR =4; Abnormal: Above high normal; Status: F Test: TROPONIN I; Value: 2.26; Range: < 0.10; Abnormal: Above upper panic limits; Units: NG/ML; Status: F Test Note: ; DIAGNOSIS CRITERIA MMB ng/ml Relative Index (RI) NON-AMI < or = 5 N/A HO ZONE > 5 < or = 4 AMI > 5 > 4 Lab Order: DIFFERENTIAL; [facility]' 08/25/16 07:13 Test: PLATELET ESTIMATE; Range: NORMAL; Status: I Test: NEUTROPHILS %; Value: 75.4; Range: 36.0-66.0; Abnormal: Above high normal; Units: %; Status: F Test: LYMPH %; Value: 9.2; Range: 24.0-44.0; Abnormal: Below low normal; Units: %; Status: F Test: MONO %; Value: 6.9; Range: 0.0-5.0; Abnormal: Above high normal; Units: %; Status: F Test: EOS %; Value: 4.5; Range: 0.0-3.0; Abnormal: Above high normal; Units: %; Status: F Test: BASO %; Value: 0.7; Range: 0.0-1.0; Units: %; Status: F Test: LARGE UNSTAINED CELL %; Value: 3.5; Range: 0.0-4.0; Units: %; Status: F Test: NEUTROPHILS #; Value: 5.7; Range: 1.8-7.7; Units: K/mm3; Status: F Test: LYMPH #; Value: 0.7; Range: 1.5-4.5; Abnormal: Below low normal; Units: K/mm3; Status: F Test: MONO #; Value: 0.5; Range: 0.0-0.8; Units: K/mm3; Status: F Test: EOS #; Value: 0.3; Range: 0.0-0.50; Units: K/mm3; Status: F Test: BASO #; Value: 0.1; Range: 0.0-0.2; Units: K/mm3; Status: F Test: LARGE UNSTAINED CELL #; Value: 0.3; Range: 0.0-0.4; Units: K/mm3; Status: F Test: PLATELET ESTIMATE; Value: NORMAL; Range: NORMAL; Status: F Lab Order: CARDIAC INJURY PROFILE; SPEC'M 08/25/16 07:13 Test: CPK CREATINE PHOSPHOKINASE; Value: 82; Range: 39-308; Units: U/L; Status: F Test: CK-MB VALUE MASS; Value: 7.1; Range: 0.0-3.6; Abnormal: Above high normal; Units: NG/ML; Status: F Test: MB/CK RELATIVE INDEX; Value: 8.65; Range: < OR =4; Abnormal: Above high normal; Status: F Test Note: ; DIAGNOSIS CRITERIA MMB ng/ml Relative Index (RI) NON-AMI < or = 5 N/A HO ZONE > 5 < or = 4 AMI > 5 > 4 Lab Order: COMPLETE COMPHRENSIVE METABOLI; SPEC'M 08/25/16 07:13 Test: GLUCOSE, FASTING; Value: 109; Range: 83-110; Units: MG/DL; Status: F Test: BLOOD UREA NITROGEN; Value: 43; Range: 7-18; Abnormal: Above high normal; Units: MG/DL; Status: F Test: CREATININE FOR GFR; Value: 5.33; Range: 0.70-1.30; Abnormal: Above high normal; Units: MG/DL; Status: F Test: GLOMERULAR FILTRATION RATE; Value: 11.1; Range: >42; Abnormal: Below low normal; Status: F Test: SODIUM LEVEL; Value: 140; Range: 136-145; Units: MEQ/L; Status: F Test: POTASSIUM SERUM; Value: 5.0; Range: 3.5-5.1; Units: MEQ/L; Status: F Test: CHLORIDE LEVEL; Value: 101; Range: 98-107; Units: MEQ/L; Status: F Test: CARBON DIOXIDE LEVEL; Value: 25; Range: 21-32; Units: MEQ/L; Status: F Test: ANION GAP; Value: 14; Range: 8-16; Units: MEQ/L; Status: F Test: CALCIUM LEVEL; Value: 8.9; Range: 8.8-10.2; Units: MG/DL; Status: F Test: AST/SGOT; Value: 33; Range: 15-37; Units: U/L; Status: F Test: ALT/SGPT; Value: 34; Range: 12-78; Units: U/L; Status: F Test: ALKALINE PHOSPHATASE; Value: 142; Range: 45-117; Abnormal: Above high normal; Units: U/L; Status: F Test: BILIRUBIN,TOTAL; Value: 0.4; Range: 0.2-1.0; Units: MG/DL; Status: F Test: TOTAL PROTEIN; Value: 7.0; Range: 6.4-8.2; Units: GM/DL; Status: F Test: ALBUMIN; Value: 3.5; Range: 3.2-5.2; Units: GM/DL; Status: F Test: ALBUMIN/GLOBULIN RATIO; Value: 1.00; Range: 1.00-1.93; Status: F Test Note: ; Units are mL/min/1.73 m2 Chronic Kidney Disease Staging per NKF: Stage I & II GFR >=60 Normal to Mildly Decreased Stage III GFR 30-59 Moderately Decreased Stage IV GFR 15-29 Severely Decreased Stage V GFR <15 Very Little GFR Left ESRD GFR <15 on ONLINE ADVERTISING DIRECTOR Lab Order: TROPONIN; [facility] 08/25/16 07:13 Test: TROPONIN I; Value: 2.12; Range: < 0.10; Abnormal: Above upper panic limits; Units: NG/ML; Status: F Test Note: ; Troponin I Reference Interval for [employer] LOCI: 99th Percentile= 0.00-0.045 ng/ml Risk Stratification: <= 0.10 ng/ml Decreased Risk for Adverse Clinical Events. 0.10-1.50 ng/ml Increased Risk for Adverse Clinical Events. Evaluation of additional criterion and/or repeat testing in 2-6 hours is suggested to rule out myocardial damage. >= 1.50 ng/ml Indicative of Myocardial Injury. Lab Order: MAGNESIUM LEVEL; [facility] 08/25/16 07:13 Test: MAGNESIUM LEVEL; Value: 2.1; Range: 1.8-2.4; Units: MG/DL; Status: F Lab Order: PHOSPHOROUS LEVEL; [facility] 08/25/16 07:13 Test: PHOSPHORUS LEVEL; Value: 6.2; Range: 2.5-4.9; Abnormal: Above high normal; Units: MG/DL; Status: F Lab Order: COMPLETE BLOOD COUNT; [facility] 08/25/16 11:35 Test: WHITE BLOOD COUNT; Value: 8.1; Range: 4.0-10.0; Units: K/mm3; Status: F Test: RED BLOOD COUNT; Value: 3.51; Range: 4.30-6.10; Abnormal: Below low normal; Units: M/mm3; Status: F Test: HEMOGLOBIN; Value: 12.2; Range: 14.0-18.0; Abnormal: Below low normal; Units: g/dl; Status: F Test: HEMATOCRIT; Value: 36.2; Range: 42.0-52.0; Abnormal: Below low normal; Units: %; Status: F Test: MEAN CORPUSCULAR VOLUME; Value: 103.2; Range: 80.0-96.0; Abnormal: Above high normal; Units: fl; Status: F Test: MEAN CORPUSCULAR HEMOGLOBIN; Value: 34.6; Range: 27.0-33.0; Abnormal: Above high normal; Units: pg; Status: F Test: MEAN CORPUSCULAR HGB CONC; Value: 33.6; Range: 32.0-36.5; Units: g/dl; Status: F Test: RED CELL DISTRIBUTION WIDTH; Value: 14.5; Range: 11.5-14.5; Units: %; Status: F Test: PLATELET COUNT, AUTOMATED; Value: 201; Range: 150-450; Units: k/mm3; Status: F Lab Order: PARTIAL THROMBOPLASTIN TIME; SPEC'M 08/25/16 11:35 Test: PARTIAL THROMBOPLASTIN TIME; Value: 41.0; Range: 26.6-37.1; Abnormal: Above high normal; Units: SECONDS; Status: F Radiology Order: EKG-ADULT Test: EKG-ADULT REASON FOR EXAMINATION: Chest Pain; Stationary ECG Study; [facility] - ED; ; Test Date: 2016-08-24; Pat Name: JOSE HAZEL Department:; Room: -; Gender: M 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 The heart is normal in size. The pulmonary vasculature is; normal in appearance. 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 alek 08/25 17:06 Patient left the ED. deg Signatures: Dispatcher [employer] EDMS Steve Tinoco MD MD pc Daly, Linda, Aquatic Life Laborer Unit lbd Patricia Medrano, Aquatic Life Laborer Unit deg Lina Monteiro, Reg Reg Blayne Bocanegra FNP FNP ke [place]merci, Jennifer,RN RN jo3 Lino Boyd RN RN ml6 Avani Oliveira RN RN sls1 Mandeep Rosariol1 Shani Hammond,RN RN js13 Sania Soto mm15 Corrections: (The following items were deleted from the chart) 08/24 11:27 11:25 MAGNESIUM LEVEL+LAB sent. jo3 EDDE 11:30 11:12 Pulse 122bpm; Monitor; Pulse Ox 98%; jo3 jo3 MTDD
--- NOTE | 2016-08-25 17:08 | EDDOCDS ---
Physician Documentation [facility] Name: Jose Hazel Age: 81 yrs Sex: Male : 1935 Arrival Date: 08/24/2016 Time: 10:57 Bed Admit Hold Private MD: Stephanie Disposition: 08/24/16 12:27 Hospitalization ordered by Adela Crowe for Inpatient Admission. Preliminary diagnosis are Angina pectoris, unspecified, Unspecified atrial fibrillation. - [facility] - Status is Inpatient Admission. deg - Condition is Stable. - Problem is an acute exacerbation. - Symptoms are unchanged. Historical: - Allergies: Aldactone; - Home Meds: 1. acetaminophen 325 mg Oral tab 2 tabs every 4-6 hours 2. aspirin 81 mg Oral chew 1 tab once daily 3. Cardura 2 mg Oral tab 1 tab once daily 4. Coreg 3.125 mg Oral tab 1 tab 2 times per day 5. lanthanum 1,000 mg oral chew 1 tab 3 times per day after each meal 6. Imodium 2 mg Oral cap 2 caps as needed 7. Atrovent 0.06 % Nasal spry 2 sprays 3 times per day 8. lisinopril 20 mg Oral tab 1 tab twice a day 9. Imdur 30 mg Oral Tb24 1 tab once daily 10. nephro carb 0.08-1.80 gram-kcal/ml 240 mL daily 11. vitamin B complex oral tab daily 12. Zoloft 25 mg Oral tab 1 tab once daily 13. Protonix 40 mg Oral TbEC 1 tab once daily 14. Phenergan 12.5 mg Oral tab 1 tab 2 times per day 15. Vitamin D3 1,000 unit oral cap daily 16. nitroglycerin 0.4 mg SL subl 1 tab every 5 minutes - PMHx: Anemia; Cardiomyopathy; chronic systolic heart failure; Diabetes - NIDDM: controlled; ESRD; gastrointestinal hemorrhage; Major Depressive Disorder; pancytopenia; Renal Failure with Dialysis; systolic and diastolic heart failure; Vitamin D deficiency; - PSHx: Hernia repair; dialysis cath left chest; - Social history: No barriers to communication noted, The patient speaks fluent Macedonian, Speaks appropriately for age. - Family history: Not pertinent. - Exposure Risk Screening:: None identified. Vital Signs: 08/24 11:12 BP 99 / 63 (auto/); jo3 11:12 Pulse 122 MON; Resp 20; Temp 97.2(O); Pulse Ox 98% ; Weight 82.55 kg / 181.99 lbs; jo3 Height 5 ft. 11 in. (180.34 cm); Pain 4/10; 11:12 BP 99 / 63 (auto/); jo3 11:12 Pulse 122 MON; Pulse Ox 98% ; jo3 11:22 BP 109 / 62 (auto/); jo3 11:22 Pulse 120 MON; Pulse Ox 98% ; jo3 11:22 BP 109 / 62 (auto/); jo3 11:22 Pulse 120 MON; Pulse Ox 98% ; jo3 11:37 BP 112 / 77 (auto/); jo3 11:37 Pulse 124 MON; Pulse Ox 94% ; jo3 11:52 BP 98 / 74 (auto/); jo3 11:52 Pulse Ox 94% ; jo3 12:07 BP 134 / 84 (auto/); jo3 12:07 Pulse 114 MON; Pulse Ox 95% ; jo3 12:22 BP 147 / 58 (auto/); jo3 12:22 Pulse 108 MON; Pulse Ox 97% ; jo3 13:03 BP 115 / 70 (auto/); jo3 13:03 Pulse 116 MON; Pulse Ox 99% ; jo3 13:35 BP 123 / 63 (auto/); jo3 13:35 Pulse 72 MON; Pulse Ox 99% ; jo3 11:12 Body Mass Index 25.38 (82.55 kg, 180.34 cm) jo3 MDM: 11:01 ECG WITH READING ER PHYS+CARDIAG ordered. EDMS 11:03 Asphalt Blender/Pulse Ox/q 30 min VS ordered. br1 11:03 IV Saline Lock ordered. br1 11:03 Rhythm Strip to chart ordered. br1 11:03 Undress patient appropriately for examination ordered. br1 11:04 Basic Metabolic Profile Ordered. EDMS 11:04 CBC with Diff Ordered. EDMS 11:04 Cardiac Injury Profile Ordered. EDMS 11:04 Troponin Ordered. EDMS 11:05 portable chest Ordered. EDMS 11:25 BNP Ordered. EDMS 11:27 MAGNESIUM LEVEL Ordered. EDMS 12:20 carvedilol 3.125 mg PO once ordered. ke 12:58 Admission / Observation Status ordered. EDMS 12:58 CONSISTENT CARBOHYDRATES ordered. EDMS 13:00 CARDIAC MARKER PANEL Ordered. EDMS 13:10 HEMOGLOBIN A1C Ordered. EDMS 13:13 ECG WITH READING ER PHYS+CARDIAG ordered. EDMS 13:33 Financial registration complete. mm15 14:30 [facility] Payment Agreement was scanned into [employer] and attached to record. mm15 15:12 T-Sheet-- Draft Copy was scanned into [employer] and attached to record. gb 17:20 BED REQUEST+ADM ordered. EDMS 19:31 COMPLETE BLOOD COUNT Ordered. EDMS 22:39 CARDIAC MARKER PANEL Ordered. EDMS 23:55 CARDIAC MARKER PANEL Ordered. EDMS 02 08:54 DIFFERENTIAL Ordered. EDMS 08:54 CARDIAC INJURY PROFILE Ordered. EDMS 08:54 COMPLETE COMPHRENSIVE METABOLI Ordered. EDMS 08:54 TROPONIN Ordered. EDMS 08:55 MAGNESIUM LEVEL Ordered. EDMS 11:15 COMPLETE BLOOD COUNT Ordered. EDMS 11:16 PARTIAL THROMBOPLASTIN TIME Ordered. EDMS 11:16 PARTIAL THROMBOPLASTIN TIME Ordered. EDMS 11:16 PARTIAL THROMBOPLASTIN TIME Ordered. EDMS 14:52 PCR was scanned into [employer] and attached to record. gb 15:38 ELECTROCARDIOGRAM ADULT ordered. EDMS Administered Medications: 08/24 12:35 Drug: carvedilol 3.125 mg Route: PO; jo3 Signatures: Dispatcher [employer] EDPatricia Larkin, Goggles Assembler Unit deg Gavin Garcia, RN RN Lina Rice, Reg Reg Blayne Bocanegra, CHANGE MANAGEMENT ANALYST Shani Barksdale,STEVAN RN jo3 Len Flores MD MD br1 Sania Soto mm15 The chart was reviewed and I authenticate all verbal orders and agree with the evaluation and treatment provided.Corrections: (The following items were deleted from the chart) 11:27 11:25 MAGNESIUM LEVEL+LAB ordered. EDAR EDMS 08/25 08:52 07:43 CBC WITH DIFFERENTIAL ordered. EDMS EDMS 08:52 07:43 COMPLETE COMPHRENSIVE METABOLI ordered. EDMS EDMS 08:52 07:43 CARDIAC INJURY PROFILE ordered. EDMS EDMS 08:52 07:43 TROPONIN ordered. EDMS EDMS 08:52 07:44 MAGNESIUM LEVEL ordered. EDMS EDMS 08:54 08/24 19:31 BASIC METABOLIC PROFILE ordered. EDMS EDMS 08/25 10:36 10:28 PHOSPHOROUS LEVEL ordered. EDMS EDMS Attachments: 08/24 14:30 [facility] Payment Agreement mm15 15:12 T-Sheet-- Draft Copy gb MTDD
--- NOTE | 2016-08-25 17:43 | ECGEPIP ---
Stationary ECG Study [facility] Test Date: 2016-08-25 Pat Name: LOKESH TIM Department: Room: [place] [address] Gender: M Chief Arson Division: [place] : 1935 Requested By: IDA CARDONA Order Number: [id number] Reading MD: Oseas Kimble Measurements Intervals [place] Rate: 64 P: 36 TN: 197 QRS: -41 QRSD: 168 T: 142 QT: 478 QTc: 496 Interpretive Statements Normal sinus rhythm Left atrial conduction disturbance Left axis deviation with left bundle branch block Probable LVH despite the conduction disturbance in light of the prominent precordial voltage No change from 08/24/16. Electronically Signed On 08-25-2016 17:43:10 EST by Oseas Kimble
[2016-08-25] MEDS: VITAMIN D 1,000 INTERNATIONAL UNITS TABLET PO SCH (20:48)
[2016-08-25] MEDS: SERTRALINE HCL 25 MG TABLET PO SCH (20:48)
[2016-08-26 04:00] VITALS: BP 139/65
[2016-08-26 05:56] LABS: BASO % 0.5 % (0.0-1.0); EOS # 0.4 K/mm3 (0.0-0.50); EOS % 5.1 % (0.0-3.0); LARGE UNSTAINED CELL # 0.3 K/mm3 (0.0-0.4); LARGE UNSTAINED CELL % 3.5 % (0.0-4.0); LYMPH # 0.6 K/mm3 (1.5-4.5); LYMPH % 7.2 % (24.0-44.0); MEAN CORPUSCULAR HEMOGLOBIN 34.6 pg (27.0-33.0); MEAN CORPUSCULAR HGB CONC 33.5 g/dl (32.0-36.5); MEAN CORPUSCULAR VOLUME 103.4 fl (80.0-96.0); MONO # 0.5 K/mm3 (0.0-0.8); MONO % 6.2 % (0.0-5.0); NEUTROPHILS # 6.1 K/mm3 (1.8-7.7); NEUTROPHILS % 77.6 % (36.0-66.0); PLATELET COUNT, AUTOMATED 174 k/mm3 (150-450); RED CELL DISTRIBUTION WIDTH 14.4 % (11.5-14.5); WHITE BLOOD COUNT 7.9 K/mm3 (4.0-10.0)
[2016-08-26] MEDS: LISINOPRIL 10 MG TAB PO SCH ×2 (05:56→22:09)
[2016-08-26] MEDS: ATORVASTATIN 20 MG TAB PO SCH (05:56)
[2016-08-26] MEDS: ASPIRIN 81 MG ENTERIC TAB PO SCH (05:57)
[2016-08-26] MEDS: PANTOPRAZOLE 40MG TAB (PROTONIX) PO SCH (05:57)
[2016-08-26] MEDS: METOPROLOL TART 25 MG TABLET PO SCH ×2 (05:57→22:09)
[2016-08-26] MEDS: ISOSORBIDE MON. (IMDUR) 30 MG XR TAB PO SCH (05:57)
[2016-08-26 06:02] LABS: ALBUMIN/GLOBULIN RATIO 0.88 (1.00-1.93); BILIRUBIN,TOTAL 0.3 MG/DL (0.2-1.0); CALCIUM LEVEL 8.1 MG/DL (8.8-10.2); CREATININE FOR GFR 6.8 MG/DL (0.70-1.30); GLOMERULAR FILTRATION RATE 8.4 (>42); MAGNESIUM LEVEL 2.1 MG/DL (1.8-2.4); TOTAL PROTEIN 6.4 GM/DL (6.4-8.2)
[2016-08-26] MEDS: IPRATROPIUM 0.06% NASAL SPRAY 15 ML (ATROVENT) SCH ×2 (06:46→23:57)
[2016-08-26] MEDS: CLOPIDOGREL 75 MG TAB PO SCH (06:46)
[2016-08-26] MEDS: CINACALCET 30 MG TAB (SENSIPAR) PO SCH (06:46)
[2016-08-26] MEDS: VITAMIN B COMPLEX/VIT C CAP PO SCH (06:46)
[2016-08-26 07:45] VITALS: BP 147/67
[2016-08-26] MEDS: CALCIUM ACETATE 667 MG GELCAP PO SCH ×3 (07:49→17:38)
[2016-08-26] MEDS: LANTHANUM CARBONATE 500 MG CHEW TABLET PO SCH ×3 (07:49→17:38)
[2016-08-26] MEDS ORDERED: HEPARIN 1,000 UNITS/ML 10ML VIAL (FOR RADIOLOGY& DIALYSIS ONLY) XX ONE (11:30)
[2016-08-26] MEDS ORDERED: HEPARIN 1,000 UNITS/ML 10ML VIAL (FOR RADIOLOGY& DIALYSIS ONLY) IV ONE (11:30)
[2016-08-26] MEDS ORDERED: LIDOCAINE 1% SDV 5 ML VIAL SQ ONE (11:30)
--- NOTE | 2016-08-26 13:02 | IPN ---
DATE: 08/26/2016 Mr. Hazel is seen this morning on his bedside in hemodialysis. Today is his regular dialysis day. He was last dialyzed on Monday when he was admitted with rapid atrial fibrillation and chest pain. Yesterday, his troponin went up to 2.2 and plan for discharge were cancelled. Heis now on IV heparin drip. The patient denies any chest pain or palpitations at present. He has no nausea, vomiting, abdominal pain or rectal bleeding. On physical examination, temperature 96.4 degrees Fahrenheit, heart rate 60 per minute and respiratory rate 20 per minute. Blood pressure 147/67 mmHg and oxygen saturation 96% on room air. Head is atraumatic. Eyes, ears, nose and throat are unremarkable. Heart exam reveals regular S1, S2. Lungs: Clear to auscultation. Abdomen: Soft and nontender. There is no palpable organomegaly. Bowel sounds are normal. Extremities have no cyanosis or clubbing. Skin has no rash or ulcers. Neurologically, he is awake, alert and oriented times three. Today's labs show WBC count 7.9, hemoglobin 11.3 and hematocrit 33.6. Platelets 174. Sodium 137 and potassium 5.0. BUN 17 and creatinine 6.8. Calcium level is 8.1. Today his CPK is 57 and troponin is down to 1.19. PROBLEMS: 1. End-stage renal disease. Patient is being dialyzed today, and he will complete full treatment of 3-1/2 hours of dialysis. 2. History of systolic congestive heart failure. This has not been an issue and patient is very well compensated with maintenance with maintenance hemodialysis which he is receiving regularly three times a week. At present, his volume status is well-compensated and we are removing about 2.5 liters of fluid today. 3. Non-ST elevation myocardial infarction. Patient is currently being anticoagulated with heparin. He is also on Plavix, aspirin, nitrates and lisinopril. From renal standpoint, the patient is doing very well. I will defer to hospitalist service about plans for his cardiac issues. DREAD
[2016-08-26 13:15] VITALS: BP 166/80
[2016-08-26] MEDS: HEPARIN DRIP 25,000 UNITS in APPROPRIATE DILUENT 1 EA IV SCH (13:20)
--- NOTE | 2016-08-26 13:26 | IPNPDOC ---
Text Note Date of Service The patient was seen on 08/26/16. NOTE Subjective: Patient is a 81 year old male with a PMHx of Systolic and Diastolic CHF (EF: 15%), atrial fibrillation (refused anticoagulation), ESRD on HD (MWF), Depression, GERD, Vitamin D deficiency and moderate aortic valve stenosis who presented to the ED from [facility] because of chest pain. He was experiencing typical chest pain until he received nitroglycerin. In the ER he was found to have a. fib with RVR and was given labetolol, after which he reverted to sinus rhythm. Patient was seen and examined at the bedside. Patient again has no new complaints, he denied chest pain, shortness of breath, palpitations. Objective: Vitals (See below) General: Lying in bed, no acute distress, comfortable, AAOx3 HEENT: NC, AT CVS: RRR, +S1S2 Lungs: Fair air entry b/l, -w/r/r Abdomen: Soft, ND, NT, +BSx4 Extremities: +PPx4, -edema, -calf tenderness Assessment and plan: 1. Chest pain - possibly 2/2 NSTEMI - Presented with typical chest pain - Physical unrevealing - EKG revealed a.fib with RVR, but now in sinus with LBBB and LVH - Troponin have trended up to 2.26; have been trending down - Patient has refused any procedures at this time (Cardiac cath); he is aware of risks; which may include sudden from arrhythmias - Discussed with cardiology (Dr. Holt); will continue with medical management as an inpatient - c/w ASA, Metoprolol, Lisinopril, plavix, atorvastatin and heparin drip (will for additional 24 hours) 2. A. fib with RVR - possibly 2/2 NSTEMI, possibly 2/2 medication non-compliance - Patient has reverted back to sinus - will c/w rate control with metoprolol 25 BID - patient has refused to be on full anticoagulation in the past as an outpatient - As an inpatient; he will be on heparin drip for NSTEMI - however, will not continue with anticoagulation as outpatient per patient request - Patient is aware of risks of not continuing anticoagulation; including blood clots which may cause stroke or sudden 2. Compensated systolic and diastolic CHF (EF of 15% / Stage 2 diastolic dysfunction) - No evidence of exacerbation at this time - Patient has refused to have AICD / Biventricular PM placed in the past - c/w Lisinopril, Metoprolol 3. ESRD on HD (MWF) - Dr. Neely (Nephrology) on consult - appreciate their input 4. Macrocytic anemia - Hg stable - will follow 5. DVT prophylaxis - is on full anticoagulation with heparin drip VS,Fishbone, I+O VS, Fishbone, I+O Laboratory Tests 08/26/16 05:28 Calcium Level 8.1 L, Aspartate Amino Transf (AST/SGOT) 24, Alanine Aminotransferase (ALT/SGPT) 31, Alkaline Phosphatase 151 H, Total Bilirubin 0.3 , Total Protein 6.4, Albumin 3.0 L, Red Blood Count 3.25 L, Mean Corpuscular Volume 103.4 H, Mean Corpuscular Hemoglobin 34.6 H, Mean Corpuscular Hemoglobin Concent 33.5, Red Cell Distribution Width 14.4, Neutrophils (%) (Auto) 77.6 H, Lymphocytes (%) (Auto) 7.2 L, Monocytes (%) (Auto) 6.2 H, Eosinophils (%) (Auto ) 5.1 H, Basophils (%) (Auto) 0.5, Neutrophils # (Auto) 6.1, Lymphocytes # (Auto ) 0.6 L, Monocytes # (Auto) 0.5, Eosinophils # (Auto) 0.4, Basophils # (Auto) 0.0 Vital Signs Date Time Temp Pulse Resp B/P Pulse Ox O2 Delivery O2 Flow Rate FiO2 08/26/16 13:15 96.1 62 18 166/80 98 Room Air I&O- Last 24 Hours up to 6 AM 08/26/16 06:00 Intake Total 1943 ml Output Total 0 ml Balance 1943 ml IDA CARDONA MD Aug 26, 2016 13:26
[2016-08-26 16:00] VITALS: BP 127/60
[2016-08-26 20:00] VITALS: BP 164/74
[2016-08-26] MEDS: HEPARIN SOD (PORCINE) 5000 UNITS/ML VIAL IV PRN (22:06)
[2016-08-26] MEDS: VITAMIN D 1,000 INTERNATIONAL UNITS TABLET PO SCH (22:08)
[2016-08-26] MEDS: SERTRALINE HCL 25 MG TABLET PO SCH (22:08)
[2016-08-27] VITALS (7 sets, daily range): BP systolic 133–179; BP diastolic 65–88
[2016-08-27] MEDS: IPRATROPIUM 0.06% NASAL SPRAY 15 ML (ATROVENT) SCH ×5 (01:14→20:37)
[2016-08-27 04:42] LABS: BASO % 0.8 % (0.0-1.0); EOS # 0.4 K/mm3 (0.0-0.50); EOS % 6.1 % (0.0-3.0); LARGE UNSTAINED CELL # 0.1 K/mm3 (0.0-0.4); LARGE UNSTAINED CELL % 2.2 % (0.0-4.0); LYMPH # 0.8 K/mm3 (1.5-4.5); LYMPH % 10.7 % (24.0-44.0); MEAN CORPUSCULAR HEMOGLOBIN 34.8 pg (27.0-33.0); MEAN CORPUSCULAR HGB CONC 33.3 g/dl (32.0-36.5); MEAN CORPUSCULAR VOLUME 104.6 fl (80.0-96.0); MONO # 0.5 K/mm3 (0.0-0.8); MONO % 8.1 % (0.0-5.0); NEUTROPHILS # 4.7 K/mm3 (1.8-7.7); NEUTROPHILS % 72.1 % (36.0-66.0); PLATELET COUNT, AUTOMATED 180 k/mm3 (150-450); RED CELL DISTRIBUTION WIDTH 14.7 % (11.5-14.5); WHITE BLOOD COUNT 6.6 K/mm3 (4.0-10.0)
[2016-08-27 05:10] LABS: ALBUMIN 2.9 GM/DL (3.2-5.2); ALBUMIN/GLOBULIN RATIO 0.91 (1.00-1.93); BILIRUBIN,TOTAL 0.3 MG/DL (0.2-1.0); CALCIUM LEVEL 8.1 MG/DL (8.8-10.2); CREATININE FOR GFR 4.77 MG/DL (0.70-1.30); GLOMERULAR FILTRATION RATE 12.6 (>42); MAGNESIUM LEVEL 1.8 MG/DL (1.8-2.4); POTASSIUM SERUM 4.2 MEQ/L (3.5-5.1); TOTAL PROTEIN 6.1 GM/DL (6.4-8.2)
[2016-08-27] MEDS: CLOPIDOGREL 75 MG TAB PO SCH (08:50)
[2016-08-27] MEDS: ISOSORBIDE MON. (IMDUR) 30 MG XR TAB PO SCH (08:51)
[2016-08-27] MEDS: PANTOPRAZOLE 40MG TAB (PROTONIX) PO SCH (08:51)
[2016-08-27] MEDS: LANTHANUM CARBONATE 500 MG CHEW TABLET PO SCH ×3 (08:51→17:18)
[2016-08-27] MEDS: METOPROLOL TART 25 MG TABLET PO SCH ×2 (08:51→20:37)
[2016-08-27] MEDS: ATORVASTATIN 20 MG TAB PO SCH (08:51)
[2016-08-27] MEDS: CALCIUM ACETATE 667 MG GELCAP PO SCH ×3 (08:51→17:19)
[2016-08-27] MEDS: LISINOPRIL 10 MG TAB PO SCH ×2 (08:52→20:37)
[2016-08-27] MEDS: VITAMIN B COMPLEX/VIT C CAP PO SCH (08:52)
[2016-08-27] MEDS: ASPIRIN 81 MG ENTERIC TAB PO SCH (08:52)
[2016-08-27] MEDS: CINACALCET 30 MG TAB (SENSIPAR) PO SCH (08:52)
[2016-08-27] MEDS: HEPARIN SOD (PORCINE) 5000 UNITS/ML VIAL IV PRN (12:02)
--- NOTE | 2016-08-27 14:11 | IPNPDOC ---
Text Note Date of Service The patient was seen on 08/27/16. NOTE Subjective: Patient is a 81 year old male with a PMHx of Systolic and Diastolic CHF (EF: 15%), atrial fibrillation (refused anticoagulation), ESRD on HD (MWF), Depression, GERD, Vitamin D deficiency and moderate aortic valve stenosis who presented to the ED from [facility] because of chest pain. He was experiencing typical chest pain until he received nitroglycerin. In the ER he was found to have a. fib with RVR and was given labetolol, after which he reverted to sinus rhythm. Patient was seen and examined at the bedside. Still denies any symptoms, including chest pain, SOB or palpitations. Objective: Vitals (See below) General: Lying in bed, no acute distress, comfortable, AAOx3 HEENT: NC, AT CVS: RRR, +S1S2 Lungs: Fair air entry b/l, -w/r/r Abdomen: Soft, ND, NT, +BSx4 Extremities: +PPx4, -edema, -calf tenderness Assessment and plan: 1. s/p Chest pain - possibly 2/2 NSTEMI - Presented with typical chest pain - Physical unrevealing - EKG revealed a.fib with RVR, but now in sinus with LBBB and LVH - Troponin have trended up to 2.26; have been trending down - Patient has refused any procedures at this time (Cardiac cath); he is aware of risks; which may include sudden from arrhythmias - Initially discussed with cardiology (Dr. Holt); plan is for medical management as an inpatient - c/w ASA, Metoprolol, Lisinopril, Plavix, atorvastatin and heparin drip - After 72 hours total of Heparin drip; will discontinue and will send patient back to [facility] 2. A. fib with RVR - possibly 2/2 NSTEMI, possibly 2/2 medication non-compliance - Patient has reverted back to sinus - c/w rate control with metoprolol 25 BID - Patient has refused to be on full anticoagulation in the past as an outpatient - As an inpatient; he will be on heparin drip for NSTEMI - however, will not continue with anticoagulation as outpatient per patient request - Patient is aware of risks of not continuing anticoagulation; including blood clots which may cause stroke or sudden 2. Compensated systolic and diastolic CHF (EF of 15% / Stage 2 diastolic dysfunction) - No evidence of exacerbation at this time - Patient has refused to have AICD / Biventricular PM placed in the past - c/w Lisinopril, Metoprolol 3. ESRD on HD (MW) - Dr. Neely (Nephrology) on consult - appreciate their input 4. Macrocytic anemia - Hg stable - will follow 5. DVT prophylaxis - is on full anticoagulation with heparin drip VS,Fishbone, I+O VS, Fishbone, I+O Laboratory Tests 08/27/16 04:00 Calcium Level 8.1 L, Aspartate Amino Transf (AST/SGOT) 24, Alanine Aminotransferase (ALT/SGPT) 29, Alkaline Phosphatase 164 H, Total Bilirubin 0.3 , Total Protein 6.1 L, Albumin 2.9 L, Red Blood Count 3.14 L, Mean Corpuscular Volume 104.6 H, Mean Corpuscular Hemoglobin 34.8 H, Mean Corpuscular Hemoglobin Concent 33.3, Red Cell Distribution Width 14.7 H, Neutrophils (%) (Auto) 72.1 H , Lymphocytes (%) (Auto) 10.7 L, Monocytes (%) (Auto) 8.1 H, Eosinophils (%) ( Auto) 6.1 H, Basophils (%) (Auto) 0.8, Neutrophils # (Auto) 4.7, Lymphocytes # ( Auto) 0.8 L, Monocytes # (Auto) 0.5, Eosinophils # (Auto) 0.4, Basophils # (Auto ) 0.0 Vital Signs Date Time Temp Pulse Resp B/P Pulse Ox O2 Delivery O2 Flow Rate FiO2 08/27/16 12:00 96.0 58 18 179/87 98 Room Air I&O- Last 24 Hours up to 6 AM 08/27/16 06:00 Intake Total 1875 ml Output Total 1500 ml Balance 375 ml IDA CARDONA MD Aug 27, 2016 14:11
[2016-08-27] MEDS: HEPARIN DRIP 25,000 UNITS in APPROPRIATE DILUENT 1 EA IV SCH (14:58)
--- NOTE | 2016-08-27 18:07 | EDDOCDS ---
Physician Documentation [facility] Name: Jose Hazel Age: 81 yrs Sex: Male : 1935 Arrival Date: 08/24/2016 Time: 10:57 Bed Admit Hold Private MD: Stephanie Disposition: 08/24/16 12:27 Hospitalization ordered by Adela Crowe for Inpatient Admission. Preliminary diagnosis are Angina pectoris, unspecified, Unspecified atrial fibrillation. - [facility] - Status is Inpatient Admission. deg - Condition is Stable. - Problem is an acute exacerbation. - Symptoms are unchanged. Historical: - Allergies: Aldactone; - Home Meds: 1. acetaminophen 325 mg Oral tab 2 tabs every 4-6 hours 2. aspirin 81 mg Oral chew 1 tab once daily 3. Cardura 2 mg Oral tab 1 tab once daily 4. Coreg 3.125 mg Oral tab 1 tab 2 times per day 5. lanthanum 1,000 mg oral chew 1 tab 3 times per day after each meal 6. Imodium 2 mg Oral cap 2 caps as needed 7. Atrovent 0.06 % Nasal spry 2 sprays 3 times per day 8. lisinopril 20 mg Oral tab 1 tab twice a day 9. Imdur 30 mg Oral Tb24 1 tab once daily 10. nephro carb 0.08-1.80 gram-kcal/ml 240 mL daily 11. vitamin B complex oral tab daily 12. Zoloft 25 mg Oral tab 1 tab once daily 13. Protonix 40 mg Oral TbEC 1 tab once daily 14. Phenergan 12.5 mg Oral tab 1 tab 2 times per day 15. Vitamin D3 1,000 unit oral cap daily 16. nitroglycerin 0.4 mg SL subl 1 tab every 5 minutes - PMHx: Anemia; Cardiomyopathy; chronic systolic heart failure; Diabetes - NIDDM: controlled; ESRD; gastrointestinal hemorrhage; Major Depressive Disorder; pancytopenia; Renal Failure with Dialysis; systolic and diastolic heart failure; Vitamin D deficiency; - PSHx: Hernia repair; dialysis cath left chest; - Social history: No barriers to communication noted, The patient speaks fluent Macedonian, Speaks appropriately for age. - Family history: Not pertinent. - Exposure Risk Screening:: None identified. Vital Signs: 08/24 11:12 BP 99 / 63 (auto/); jo3 11:12 Pulse 122 MON; Resp 20; Temp 97.2(O); Pulse Ox 98% ; Weight 82.55 kg / 181.99 lbs; jo3 Height 5 ft. 11 in. (180.34 cm); Pain 4/10; 11:12 BP 99 / 63 (auto/); jo3 11:12 Pulse 122 MON; Pulse Ox 98% ; jo3 11:22 BP 109 / 62 (auto/); jo3 11:22 Pulse 120 MON; Pulse Ox 98% ; jo3 11:22 BP 109 / 62 (auto/); jo3 11:22 Pulse 120 MON; Pulse Ox 98% ; jo3 11:37 BP 112 / 77 (auto/); jo3 11:37 Pulse 124 MON; Pulse Ox 94% ; jo3 11:52 BP 98 / 74 (auto/); jo3 11:52 Pulse Ox 94% ; jo3 12:07 BP 134 / 84 (auto/); jo3 12:07 Pulse 114 MON; Pulse Ox 95% ; jo3 12:22 BP 147 / 58 (auto/); jo3 12:22 Pulse 108 MON; Pulse Ox 97% ; jo3 13:03 BP 115 / 70 (auto/); jo3 13:03 Pulse 116 MON; Pulse Ox 99% ; jo3 13:35 BP 123 / 63 (auto/); jo3 13:35 Pulse 72 MON; Pulse Ox 99% ; jo3 11:12 Body Mass Index 25.38 (82.55 kg, 180.34 cm) jo3 MDM: 11:01 ECG WITH READING ER PHYS+CARDIAG ordered. EDMS 11:03 Admitting Office Escort/Pulse Ox/q 30 min VS ordered. br1 11:03 IV Saline Lock ordered. br1 11:03 Rhythm Strip to chart ordered. br1 11:03 Undress patient appropriately for examination ordered. br1 11:04 Basic Metabolic Profile Ordered. EDMS 11:04 CBC with Diff Ordered. EDMS 11:04 Cardiac Injury Profile Ordered. EDMS 11:04 Troponin Ordered. EDMS 11:05 portable chest Ordered. EDMS 11:25 BNP Ordered. EDMS 11:27 MAGNESIUM LEVEL Ordered. EDMS 12:20 carvedilol 3.125 mg PO once ordered. ke 12:58 Admission / Observation Status ordered. EDMS 12:58 CONSISTENT CARBOHYDRATES ordered. EDMS 13:00 CARDIAC MARKER PANEL Ordered. EDMS 13:10 HEMOGLOBIN A1C Ordered. EDMS 13:13 ECG WITH READING ER PHYS+CARDIAG ordered. EDMS 13:33 Financial registration complete. mm15 14:30 [facility] Payment Agreement was scanned into [employer] and attached to record. mm15 15:12 T-Sheet-- Draft Copy was scanned into [employer] and attached to record. gb 17:20 BED REQUEST+ADM ordered. EDMS 19:31 COMPLETE BLOOD COUNT Ordered. EDMS 22:39 CARDIAC MARKER PANEL Ordered. EDMS 23:55 CARDIAC MARKER PANEL Ordered. EDMS 02 08:54 DIFFERENTIAL Ordered. EDMS 08:54 CARDIAC INJURY PROFILE Ordered. EDMS 08:54 COMPLETE COMPHRENSIVE METABOLI Ordered. EDMS 08:54 TROPONIN Ordered. EDMS 08:55 MAGNESIUM LEVEL Ordered. EDMS 11:15 COMPLETE BLOOD COUNT Ordered. EDMS 11:16 PARTIAL THROMBOPLASTIN TIME Ordered. EDMS 11:16 PARTIAL THROMBOPLASTIN TIME Ordered. EDMS 11:16 PARTIAL THROMBOPLASTIN TIME Ordered. EDMS 14:52 PCR was scanned into [employer] and attached to record. gb 15:38 ELECTROCARDIOGRAM ADULT ordered. EDMS 08/26 13:37 ECG/EKG was scanned into [employer] and attached to record. gb 13:37 PCR was scanned into [employer] and attached to record. gb 13:38 Rhythm Strip was scanned into [employer] and attached to record. gb Administered Medications: 08/24 12:35 Drug: carvedilol 3.125 mg Route: PO; jo3 Signatures: Dispatcher [employer] EDMN Patricia Medrano, Ballistic Technician Unit deg Gavin Garcia, RN RN dwg Lina Monteiro, Reg Reg gb Blayne Hansen, FINAL BLOCK PRESS OPERATOR FINAL BLOCK PRESS OPERATOR Shani Kilgore RN RN jo3 Len Flores MD MD br1 Sania Soto mm15 The chart was reviewed and I authenticate all verbal orders and agree with the evaluation and treatment provided.Corrections: (The following items were deleted from the chart) 11:27 11:25 MAGNESIUM LEVEL+LAB ordered. EDMN EDMS 08/25 08:52 07:43 CBC WITH DIFFERENTIAL ordered. EDMS EDMS 08:52 07:43 COMPLETE COMPHRENSIVE METABOLI ordered. EDMS EDMS 08:52 07:43 CARDIAC INJURY PROFILE ordered. EDMS EDMS 08:52 07:43 TROPONIN ordered. EDMS EDMS :52 07:44 MAGNESIUM LEVEL ordered. EDMS EDMS 08:54 08/24 19:31 BASIC METABOLIC PROFILE ordered. EDMS EDMS 08/25 10:36 10:28 PHOSPHOROUS LEVEL ordered. EDMS EDMS : 08/24 14:30 [facility] Payment Agreement mm15 15:12 T-Sheet-- Draft Copy gb 08/26 13:37 ECG/EKG gb Chart Complete MTDD
--- NOTE | 2016-08-27 18:07 | EDDOCDS ---
Physician Documentation [facility] Name: Jose Hazel Age: 81 yrs Sex: Male : 1935 Arrival Date: 08/24/2016 Time: 10:57 Bed Admit Hold Private MD: Stephanie Disposition: 08/24/16 12:27 Hospitalization ordered by Adela Crowe for Inpatient Admission. Preliminary diagnosis are Angina pectoris, unspecified, Unspecified atrial fibrillation. - [facility] - Status is Inpatient Admission. deg - Condition is Stable. - Problem is an acute exacerbation. - Symptoms are unchanged. Historical: - Allergies: Aldactone; - Home Meds: 1. acetaminophen 325 mg Oral tab 2 tabs every 4-6 hours 2. aspirin 81 mg Oral chew 1 tab once daily 3. Cardura 2 mg Oral tab 1 tab once daily 4. Coreg 3.125 mg Oral tab 1 tab 2 times per day 5. lanthanum 1,000 mg oral chew 1 tab 3 times per day after each meal 6. Imodium 2 mg Oral cap 2 caps as needed 7. Atrovent 0.06 % Nasal spry 2 sprays 3 times per day 8. lisinopril 20 mg Oral tab 1 tab twice a day 9. Imdur 30 mg Oral Tb24 1 tab once daily 10. nephro carb 0.08-1.80 gram-kcal/ml 240 mL daily 11. vitamin B complex oral tab daily 12. Zoloft 25 mg Oral tab 1 tab once daily 13. Protonix 40 mg Oral TbEC 1 tab once daily 14. Phenergan 12.5 mg Oral tab 1 tab 2 times per day 15. Vitamin D3 1,000 unit oral cap daily 16. nitroglycerin 0.4 mg SL subl 1 tab every 5 minutes - PMHx: Anemia; Cardiomyopathy; chronic systolic heart failure; Diabetes - NIDDM: controlled; ESRD; gastrointestinal hemorrhage; Major Depressive Disorder; pancytopenia; Renal Failure with Dialysis; systolic and diastolic heart failure; Vitamin D deficiency; - PSHx: Hernia repair; dialysis cath left chest; - Social history: No barriers to communication noted, The patient speaks fluent Urdu, Speaks appropriately for age. - Family history: Not pertinent. - Exposure Risk Screening:: None identified. Vital Signs: 08/24 11:12 BP 99 / 63 (auto/); jo3 11:12 Pulse 122 MON; Resp 20; Temp 97.2(O); Pulse Ox 98% ; Weight 82.55 kg / 181.99 lbs; jo3 Height 5 ft. 11 in. (180.34 cm); Pain 4/10; 11:12 BP 99 / 63 (auto/); jo3 11:12 Pulse 122 MON; Pulse Ox 98% ; jo3 11:22 BP 109 / 62 (auto/); jo3 11:22 Pulse 120 MON; Pulse Ox 98% ; jo3 11:22 BP 109 / 62 (auto/); jo3 11:22 Pulse 120 MON; Pulse Ox 98% ; jo3 11:37 BP 112 / 77 (auto/); jo3 11:37 Pulse 124 MON; Pulse Ox 94% ; jo3 11:52 BP 98 / 74 (auto/); jo3 11:52 Pulse Ox 94% ; jo3 12:07 BP 134 / 84 (auto/); jo3 12:07 Pulse 114 MON; Pulse Ox 95% ; jo3 12:22 BP 147 / 58 (auto/); jo3 12:22 Pulse 108 MON; Pulse Ox 97% ; jo3 13:03 BP 115 / 70 (auto/); jo3 13:03 Pulse 116 MON; Pulse Ox 99% ; jo3 13:35 BP 123 / 63 (auto/); jo3 13:35 Pulse 72 MON; Pulse Ox 99% ; jo3 11:12 Body Mass Index 25.38 (82.55 kg, 180.34 cm) jo3 MDM: 11:01 ECG WITH READING ER PHYS+CARDIAG ordered. EDMS 11:03 Manager Of Compliance/Pulse Ox/q 30 min VS ordered. br1 11:03 IV Saline Lock ordered. br1 11:03 Rhythm Strip to chart ordered. br1 11:03 Undress patient appropriately for examination ordered. br1 11:04 Basic Metabolic Profile Ordered. EDMS 11:04 CBC with Diff Ordered. EDMS 11:04 Cardiac Injury Profile Ordered. EDMS 11:04 Troponin Ordered. EDMS 11:05 portable chest Ordered. EDMS 11:25 BNP Ordered. EDMS 11:27 MAGNESIUM LEVEL Ordered. EDMS 12:20 carvedilol 3.125 mg PO once ordered. ke 12:58 Admission / Observation Status ordered. EDMS 12:58 CONSISTENT CARBOHYDRATES ordered. EDMS 13:00 CARDIAC MARKER PANEL Ordered. EDMS 13:10 HEMOGLOBIN A1C Ordered. EDMS 13:13 ECG WITH READING ER PHYS+CARDIAG ordered. EDMS 13:33 Financial registration complete. mm15 14:30 [facility] [place] Payment Agreement was scanned into [employer] and attached to record. mm15 15:12 T-Sheet-- Draft Copy was scanned into [employer] and attached to record. gb 17:20 BED REQUEST+ADM ordered. EDMS 19:31 COMPLETE BLOOD COUNT Ordered. EDMS 22:39 CARDIAC MARKER PANEL Ordered. EDMS 23:55 CARDIAC MARKER PANEL Ordered. EDMS 02 08:54 DIFFERENTIAL Ordered. EDMS 08:54 CARDIAC INJURY PROFILE Ordered. EDMS 08:54 COMPLETE COMPHRENSIVE METABOLI Ordered. EDMS 08:54 TROPONIN Ordered. EDMS 08:55 MAGNESIUM LEVEL Ordered. EDMS 11:15 COMPLETE BLOOD COUNT Ordered. EDMS 11:16 PARTIAL THROMBOPLASTIN TIME Ordered. EDMS 11:16 PARTIAL THROMBOPLASTIN TIME Ordered. EDMS 11:16 PARTIAL THROMBOPLASTIN TIME Ordered. EDMS 14:52 PCR was scanned into [employer] and attached to record. gb 15:38 ELECTROCARDIOGRAM ADULT ordered. EDMS 08/26 13:37 ECG/EKG was scanned into [employer] and attached to record. gb 13:37 PCR was scanned into [employer] and attached to record. gb 13:38 Rhythm Strip was scanned into [employer] and attached to record. gb Administered Medications: 08/24 12:35 Drug: carvedilol 3.125 mg Route: PO; jo3 Signatures: Dispatcher [employer] EDPA Patricia Medrano, Band Sawing Machine Operator Unit deg Gavin Garcia, RN RN dwg Lina Monteiro, Reg Reg gb Blayne Hansen, COUNTER SUPERVISOR COUNTER SUPERVISOR Shani Kilgore RN RN jo3 Len Flores MD MD br1 Sania Soto mm15 The chart was reviewed and I authenticate all verbal orders and agree with the evaluation and treatment provided.Corrections: (The following items were deleted from the chart) 11:27 11:25 MAGNESIUM LEVEL+LAB ordered. EDPA EDMS 08/25 08:52 07:43 CBC WITH DIFFERENTIAL ordered. EDMS EDMS 08:52 07:43 COMPLETE COMPHRENSIVE METABOLI ordered. EDMS EDMS 08:52 07:43 CARDIAC INJURY PROFILE ordered. EDMS EDMS 08:52 07:43 TROPONIN ordered. EDMS EDMS :52 07:44 MAGNESIUM LEVEL ordered. EDMS EDMS 08:54 08/24 19:31 BASIC METABOLIC PROFILE ordered. EDMS EDMS 08/25 10:36 10:28 PHOSPHOROUS LEVEL ordered. EDMS EDMS : 08/24 14:30 [facility] Payment Agreement mm15 15:12 T-Sheet-- Draft Copy gb 08/26 13:37 ECG/EKG gb Chart Complete MTDD
--- NOTE | 2016-08-27 18:07 | EDDOCDS ---
Nurse's Notes [facility] Name: Jose Hazel Age: 81 yrs Sex: Male : 1935 Arrival Date: 08/24/2016 Time: 10:57 Bed Admit Hold Private MD: Stephanie Diagnosis: Angina pectoris, unspecified;Unspecified atrial fibrillation Presentation: 08/24 11:01 Presenting complaint: EMS states: resident of [facility] on assisted living side. Dialysis pt. jo3 Admits to having intermittent CP on exertion for several days but it worsened this morning. Accompanied by exertional SOB. 2 nitro SL given by [facility] staff with decreased pain from 9 to 210. 1 additional Nitro given by EMS and pain resolved but returned on arrival to [facility] ED. 324mg ASA also given and 4 mg Zofran given for 1 episode of vomiting. Pt has history of afib. 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 Adult Sepsis Screening: The patient does not have new or worsening altered mentation. Suicide/Homicide risk assessment- the patient denies having any suicidal and/or homicidal ideations and does not present with any other emotional, behavioral or mental health complaints. 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 Transition of care: patient was received from [facility]-assisted. 11:01 Acuity: RADHIKA Level 2 jo3 11:01 Method Of Arrival: Ambulance jo3 Triage Assessment: 11:20 General: Appears in no apparent distress, Behavior is appropriate for age, cooperative, jo3 pleasant. Historical: - Allergies: Aldactone; - Home Meds: 1. acetaminophen 325 mg Oral tab 2 tabs every 4-6 hours 2. aspirin 81 mg Oral chew 1 tab once daily 3. Cardura 2 mg Oral tab 1 tab once daily 4. Coreg 3.125 mg Oral tab 1 tab 2 times per day 5. lanthanum 1,000 mg oral chew 1 tab 3 times per day after each meal 6. Imodium 2 mg Oral cap 2 caps as needed 7. Atrovent 0.06 % Nasal spry 2 sprays 3 times per day 8. lisinopril 20 mg Oral tab 1 tab twice a day 9. Imdur 30 mg Oral Tb24 1 tab once daily 10. nephro carb 0.08-1.80 gram-kcal/ml 240 mL daily 11. vitamin B complex oral tab daily 12. Zoloft 25 mg Oral tab 1 tab once daily 13. Protonix 40 mg Oral TbEC 1 tab once daily 14. Phenergan 12.5 mg Oral tab 1 tab 2 times per day 15. Vitamin D3 1,000 unit oral cap daily 16. nitroglycerin 0.4 mg SL subl 1 tab every 5 minutes - PMHx: Anemia; Cardiomyopathy; chronic systolic heart failure; Diabetes - NIDDM: controlled; ESRD; gastrointestinal hemorrhage; Major Depressive Disorder; pancytopenia; Renal Failure with Dialysis; systolic and diastolic heart failure; Vitamin D deficiency; - PSHx: Hernia repair; dialysis cath left chest; - Social history: No barriers to communication noted, The patient speaks fluent Hungarian, Speaks appropriately for age. - Family history: Not pertinent. - Exposure Risk Screening:: None identified. Screenin:30 Screening information is obtained from the patient. Fall risk: No risks identified. jo3 Assistance ADL's: Requires assistance with medication administration, assistance is provided by residence staff. Abuse/DV Screen: The patient / caregiver reports he/she is: not in a situation that causes fear, pain or injury. Nutritional screening: No deficits noted. Advance Directives:. home support is adequate. Assessment: 11:30 General: Appears in no apparent distress, comfortable, Behavior is appropriate for age, jo3 cooperative, pleasant. Neurological: Level of Consciousness is awake, alert, Oriented to person, place, time, Speech is normal, Facial symmetry appears normal, Pupils are PERRLA, Reports Dizziness prior to arrival. Thinks it was after Nitro administration . Cardiovascular: Rhythm is sinus tachycardia Chest pain is located in left anterior radiates Does not radiate. episodes are continuous Chest pain began 2-3 days ago. Respiratory: Airway is patent Respiratory effort is even, unlabored, Breath sounds are diminished bilaterally. Derm: Skin is pink, warm & dry. 12:25 Reassessment: Patient appears in no apparent distress at this time. Patient states jo3 feeling better. Patient states symptoms have improved. Pt resting quietly on stretcher. reports that pain and nausea are decreased at this time. Awaiting results for disposition. aware of plan of care . 13:00 Reassessment: Patient appears in no apparent distress at this time. Dr Crowe in to see jo3 pt at this time. awaiting admission to PCU. aware of plan . 13:30 Reassessment: Patient appears in no apparent distress at this time. Patient states js13 feeling better. Patient states symptoms have improved. Converted to NSR. EKG obtained. Awaiting admission. Aware of plan of care . 14:05 General: Appears in no apparent distress, comfortable, Behavior is appropriate for age, jo3 cooperative. General: Taken to dialysis at this time. Aware of plan of care . Neurological: Level of Consciousness is awake, alert, Oriented to person, place, time. Cardiovascular: Rhythm is sinus rhythm No ectopy. Derm: Skin is pink, warm & dry. Vital Signs: 11:12 BP 99 / 63 (auto/); jo3 11:12 Pulse 122 MON; Resp 20; Temp 97.2(O); Pulse Ox 98% ; Weight 82.55 kg; Height 5 ft. 11 jo3 in. (180.34 cm); Pain 4/10; 11:12 BP 99 / 63 (auto/); jo3 11:12 Pulse 122 MON; Pulse Ox 98% ; jo3 11:22 BP 109 / 62 (auto/); jo3 11:22 Pulse 120 MON; Pulse Ox 98% ; jo3 11:22 BP 109 / 62 (auto/); jo3 11:22 Pulse 120 MON; Pulse Ox 98% ; jo3 11:37 BP 112 / 77 (auto/); jo3 11:37 Pulse 124 MON; Pulse Ox 94% ; jo3 11:52 BP 98 / 74 (auto/); jo3 11:52 Pulse Ox 94% ; jo3 12:07 BP 134 / 84 (auto/); jo3 12:07 Pulse 114 MON; Pulse Ox 95% ; jo3 12:22 BP 147 / 58 (auto/); jo3 12:22 Pulse 108 MON; Pulse Ox 97% ; jo3 13:03 BP 115 / 70 (auto/); jo3 13:03 Pulse 116 MON; Pulse Ox 99% ; jo3 13:35 BP 123 / 63 (auto/); jo3 13:35 Pulse 72 MON; Pulse Ox 99% ; jo3 11:12 Body Mass Index 25.38 (82.55 kg, 180.34 cm) jo3 Vitals: 11:25 Log In Time N/A - ambulance arrival. jo3 11:28 Log In Time N/A - ambulance arrival. jo3 ED Course: 10:57 Patient visited by Katherine Head, Trade Sales Assistant. lbd 10:57 Patient moved to Waiting lbd 10:58 Stephanie is Private Physician. lbd 10:58 Patient moved to 4 lbd 11:04 Triage Initiated jo3 11:10 Patient visited by Mandeep Rosario. jml1 11:10 EKG done. (by ED staff). Reviewed by Feliz Flores MD. jml1 11:22 Inserted peripheral IV: 16gauge IV in right forearm and blood collected. Patient ml6 tolerated the procedure well. Labs drawn. (by ED staff). Sent per order to lab. 11:25 BNP Sent. jo3 11:30 The patient / caregiver is instructed regarding the plan of care and ED course. Cardiac jo3 monitor on. Pulse ox on. NIBP on. 11:34 Patient visited by Shani Smith RN. jo3 11:34 MAGNESIUM LEVEL Sent. jo3 12:10 portable chest Returned. EDMS 12:13 Blayne Hansen FNP is PHCP. ke 12:13 Patient visited by Blayne Hansen FNP. ke 12:13 Patient visited by Blayne Hansen FNP. ke 12:26 Adela Crowe is Hospitalizing Provider. ke 12:47 EKG-ADULT Returned. EDMS 13:00 Patient visited by Shani Smith RN. jo3 13:23 Patient visited by Mandeep Rosario. jml1 13:23 EKG done. (by ED staff). Reviewed by Blayne XAVIER. jml1 13:31 Patient visited by Shani Hammond RN. js13 14:16 Patient visited by Shani Smith RN. jo3 14:30 [facility] [place] was scanned into [employer] and attached to record. mm15 14:49 Patient moved to 19 jo3 15:12 T-Sheet-- Draft Copy was scanned into [employer] and attached to record. gb 19:02 EKG-ADULT Returned. EDMS 19:34 Patient moved to Admit Hold sls1 08/25 06:59 Steve Tinoco MD is Attending Physician. pc 14:52 PCR was scanned into [employer] and attached to record. gb 08/26 13:37 ECG/EKG was scanned into [employer] and attached to record. gb 13:37 PCR was scanned into [employer] and attached to record. gb 13:38 Rhythm Strip was scanned into [employer] and attached to record. gb Administered Medications: 08/24 12:35 Drug: carvedilol 3.125 mg Route: PO; jo3 Attachments: 13:38 Rhythm Strip gb Order Results: Lab Order: Basic Metabolic Profile; SPEC'M 08/24/16 11:16 Test: GLUCOSE, FASTING; Value: 136; Range: 83-110; Abnormal: Above high normal; Units: MG/DL; Status: F Test: BLOOD UREA NITROGEN; Value: 80; Range: 7-18; Abnormal: Above high normal; Units: MG/DL; Status: F Test: CREATININE FOR GFR; Value: 7.66; Range: 0.70-1.30; Abnormal: Above high normal; Units: MG/DL; Status: F Test: GLOMERULAR FILTRATION RATE; Value: 7.3; Range: >42; Abnormal: Below low normal; Status: F Test: SODIUM LEVEL; Value: 140; Range: 136-145; Units: MEQ/L; Status: F Test: POTASSIUM SERUM; Value: 4.6; Range: 3.5-5.1; Units: MEQ/L; Status: F Test: CHLORIDE LEVEL; Value: 101; Range: 98-107; Units: MEQ/L; Status: F Test: CARBON DIOXIDE LEVEL; Value: 23; Range: 21-32; Units: MEQ/L; Status: F Test: ANION GAP; Value: 16; Range: 8-16; Units: MEQ/L; Status: F Test: CALCIUM LEVEL; Value: 8.4; Range: 8.8-10.2; Abnormal: Below low normal; Units: MG/DL; Status: F Test Note: ; Units are mL/min/1.73 m2 Chronic Kidney Disease Staging per NKF: Stage I & II GFR >=60 Normal to Mildly Decreased Stage III GFR 30-59 Moderately Decreased Stage IV GFR 15-29 Severely Decreased Stage V GFR <15 Very Little GFR Left ESRD GFR <15 on NARROW FABRIC CALENDERER Lab Order: CBC with Diff; SPEC'M 08/24/16 11:16 Test: WHITE BLOOD COUNT; Value: 9.1; Range: 4.0-10.0; Units: K/mm3; Status: F Test: RED BLOOD COUNT; Value: 3.31; Range: 4.30-6.10; Abnormal: Below low normal; Units: M/mm3; Status: F Test: HEMOGLOBIN; Value: 11.5; Range: 14.0-18.0; Abnormal: Below low normal; Units: g/dl; Status: F Test: HEMATOCRIT; Value: 34.8; Range: 42.0-52.0; Abnormal: Below low normal; Units: %; Status: F Test: MEAN CORPUSCULAR VOLUME; Value: 105.0; Range: 80.0-96.0; Abnormal: Above high normal; Units: fl; Status: F Test: MEAN CORPUSCULAR HEMOGLOBIN; Value: 34.8; Range: 27.0-33.0; Abnormal: Above high normal; Units: pg; Status: F Test: MEAN CORPUSCULAR HGB CONC; Value: 33.2; Range: 32.0-36.5; Units: g/dl; Status: F Test: RED CELL DISTRIBUTION WIDTH; Value: 15.4; Range: 11.5-14.5; Abnormal: Above high normal; Units: %; Status: F Test: PLATELET COUNT, AUTOMATED; Value: 229; Range: 150-450; Units: k/mm3; Status: F Test: NEUTROPHILS %; Value: 80.8; Range: 36.0-66.0; Abnormal: Above high normal; Units: %; Status: F Test: LYMPH %; Value: 7.0; Range: 24.0-44.0; Abnormal: Below low normal; Units: %; Status: F Test: MONO %; Value: 6.6; Range: 0.0-5.0; Abnormal: Above high normal; Units: %; Status: F Test: EOS %; Value: 3.4; Range: 0.0-3.0; Abnormal: Above high normal; Units: %; Status: F Test: BASO %; Value: 0.6; Range: 0.0-1.0; Units: %; Status: F Test: LARGE UNSTAINED CELL %; Value: 1.7; Range: 0.0-4.0; Units: %; Status: F Test: NEUTROPHILS #; Value: 7.4; Range: 1.8-7.7; Units: K/mm3; Status: F Test: LYMPH #; Value: 0.8; Range: 1.5-4.5; Abnormal: Below low normal; Units: K/mm3; Status: F Test: MONO #; Value: 0.6; Range: 0.0-0.8; Units: K/mm3; Status: F Test: EOS #; Value: 0.3; Range: 0.0-0.50; Units: K/mm3; Status: F Test: BASO #; Value: 0.0; Range: 0.0-0.2; Units: K/mm3; Status: F Test: LARGE UNSTAINED CELL #; Value: 0.2; Range: 0.0-0.4; Units: K/mm3; Status: F Lab Order: Cardiac Injury Profile; [facility] 08/24/16 11:16 Test: CPK CREATINE PHOSPHOKINASE; Value: 74; Range: 39-308; Units: U/L; Status: F Test: CK-MB VALUE MASS; Value: 3.5; Range: 0.0-3.6; Units: NG/ML; Status: F Test: MB/CK RELATIVE INDEX; Value: 4.72; Range: < OR =4; Abnormal: Above high normal; Status: F Test Note: ; DIAGNOSIS CRITERIA MMB ng/ml Relative Index (RI) NON-AMI < or = 5 N/A HO ZONE > 5 < or = 4 AMI > 5 > 4 Lab Order: Troponin; [facility] 11:16 Test: TROPONIN I; Value: 0.09; Range: < 0.10; Units: NG/ML; Status: F Test Note: ; Troponin I Reference Interval for I [place] LOCI: 99th Percentile= 0.00-0.045 ng/ml Risk Stratification: <= 0.10 ng/ml Decreased Risk for Adverse Clinical Events. 0.10-1.50 ng/ml Increased Risk for Adverse Clinical Events. Evaluation of additional criterion and/or repeat testing in 2-6 hours is suggested to rule out myocardial damage. >= 1.50 ng/ml Indicative of Myocardial Injury. Lab Order: BNP; [facility] 08/24/16 10:52 Test: BRAIN NATRIURETIC PEPTIDE; Value: 1280; Range: <100; Abnormal: Above high normal; Units: PG/ML; Status: F Lab Order: MAGNESIUM LEVEL; [facility] 08/24/16 11:16 Test: MAGNESIUM LEVEL; Value: 2.3; Range: 1.8-2.4; Units: MG/DL; Status: F Lab Order: CARDIAC MARKER PANEL; [facility] 08/24/16 18:48 Test: CPK CREATINE PHOSPHOKINASE; Value: 108; Range: 39-308; Units: U/L; Status: F Test: CK-MB VALUE MASS; Value: 10.7; Range: 0.0-3.6; Abnormal: Above high normal; Units: NG/ML; Status: F Test: MB/CK RELATIVE INDEX; Value: 9.90; Range: < OR =4; Abnormal: Above high normal; Status: F Test: TROPONIN I; Value: 1.33; Range: < 0.10; Abnormal: High; Units: NG/ML; Status: F Test Note: ; DIAGNOSIS CRITERIA MMB ng/ml Relative Index (RI) NON-AMI < or = 5 N/A HO ZONE > 5 < or = 4 AMI > 5 > 4 Lab Order: HEMOGLOBIN A1C; [facility] 08/24/16 13:15 Test: HEMOGLOBIN A1c; Value: 5.0; Range: 4.5-6.2; Units: %; Status: F Test: ESTIMATED AVERAGE GLUCOSE; Value: 97; Range: 60-110; Units: MG/DL; Status: F Lab Order: COMPLETE BLOOD COUNT; [facility] 08/25/16 07:13 Test: WHITE BLOOD COUNT; Value: 7.6; Range: 4.0-10.0; Units: K/mm3; Status: F Test: RED BLOOD COUNT; Value: 3.72; Range: 4.30-6.10; Abnormal: Below low normal; Units: M/mm3; Status: F Test: HEMOGLOBIN; Value: 12.6; Range: 14.0-18.0; Abnormal: Below low normal; Units: g/dl; Status: F Test: HEMATOCRIT; Value: 39.7; Range: 42.0-52.0; Abnormal: Below low normal; Units: %; Status: F Test: MEAN CORPUSCULAR VOLUME; Value: 106.6; Range: 80.0-96.0; Abnormal: Above high normal; Units: fl; Status: F Test: MEAN CORPUSCULAR HEMOGLOBIN; Value: 33.8; Range: 27.0-33.0; Abnormal: Above high normal; Units: pg; Status: F Test: MEAN CORPUSCULAR HGB CONC; Value: 31.7; Range: 32.0-36.5; Abnormal: Below low normal; Units: g/dl; Status: F Test: RED CELL DISTRIBUTION WIDTH; Value: 15.1; Range: 11.5-14.5; Abnormal: Above high normal; Units: %; Status: F Test: PLATELET COUNT, AUTOMATED; Value: 205; Range: 150-450; Units: k/mm3; Status: F Lab Order: CARDIAC MARKER PANEL; [facility] 08/24/16 22:50 Test: CPK CREATINE PHOSPHOKINASE; Value: 89; Range: 39-308; Units: U/L; Status: F Test: CK-MB VALUE MASS; Value: 9.8; Range: 0.0-3.6; Abnormal: Above high normal; Units: NG/ML; Status: F Test: MB/CK RELATIVE INDEX; Value: 11.01; Range: < OR =4; Abnormal: Above high normal; Status: F Test: TROPONIN I; Value: 2.02; Range: < 0.10; Abnormal: Critical Delta High; Units: NG/ML; Status: F Test Note: ; DIAGNOSIS CRITERIA MMB ng/ml Relative Index (RI) NON-AMI < or = 5 N/A HO ZONE > 5 < or = 4 AMI > 5 > 4 Lab Order: CARDIAC MARKER PANEL; [facility] 08/25/16 07:13 Test: CPK CREATINE PHOSPHOKINASE; Value: 79; Range: 39-308; Units: U/L; Status: F Test: CK-MB VALUE MASS; Value: 7.4; Range: 0.0-3.6; Abnormal: Above high normal; Units: NG/ML; Status: F Test: MB/CK RELATIVE INDEX; Value: 9.36; Range: < OR =4; Abnormal: Above high normal; Status: F Test: TROPONIN I; Value: 2.26; Range: < 0.10; Abnormal: Above upper panic limits; Units: NG/ML; Status: F Test Note: ; DIAGNOSIS CRITERIA MMB ng/ml Relative Index (RI) NON-AMI < or = 5 N/A HO ZONE > 5 < or = 4 AMI > 5 > 4 Lab Order: DIFFERENTIAL; [facility] 08/25/16 07:13 Test: PLATELET ESTIMATE; Range: NORMAL; Status: I Test: NEUTROPHILS %; Value: 75.4; Range: 36.0-66.0; Abnormal: Above high normal; Units: %; Status: F Test: LYMPH %; Value: 9.2; Range: 24.0-44.0; Abnormal: Below low normal; Units: %; Status: F Test: MONO %; Value: 6.9; Range: 0.0-5.0; Abnormal: Above high normal; Units: %; Status: F Test: EOS %; Value: 4.5; Range: 0.0-3.0; Abnormal: Above high normal; Units: %; Status: F Test: BASO %; Value: 0.7; Range: 0.0-1.0; Units: %; Status: F Test: LARGE UNSTAINED CELL %; Value: 3.5; Range: 0.0-4.0; Units: %; Status: F Test: NEUTROPHILS #; Value: 5.7; Range: 1.8-7.7; Units: K/mm3; Status: F Test: LYMPH #; Value: 0.7; Range: 1.5-4.5; Abnormal: Below low normal; Units: K/mm3; Status: F Test: MONO #; Value: 0.5; Range: 0.0-0.8; Units: K/mm3; Status: F Test: EOS #; Value: 0.3; Range: 0.0-0.50; Units: K/mm3; Status: F Test: BASO #; Value: 0.1; Range: 0.0-0.2; Units: K/mm3; Status: F Test: LARGE UNSTAINED CELL #; Value: 0.3; Range: 0.0-0.4; Units: K/mm3; Status: F Test: PLATELET ESTIMATE; Value: NORMAL; Range: NORMAL; Status: F Lab Order: CARDIAC INJURY PROFILE; [facility] 08/25/16 07:13 Test: CPK CREATINE PHOSPHOKINASE; Value: 82; Range: 39-308; Units: U/L; Status: F Test: CK-MB VALUE MASS; Value: 7.1; Range: 0.0-3.6; Abnormal: Above high normal; Units: NG/ML; Status: F Test: MB/CK RELATIVE INDEX; Value: 8.65; Range: < OR =4; Abnormal: Above high normal; Status: F Test Note: ; DIAGNOSIS CRITERIA MMB ng/ml Relative Index (RI) NON-AMI < or = 5 N/A HO ZONE > 5 < or = 4 AMI > 5 > 4 Lab Order: COMPLETE COMPHRENSIVE METABOLI; SPEC'M 08/25/16 07:13 Test: GLUCOSE, FASTING; Value: 109; Range: 83-110; Units: MG/DL; Status: F Test: BLOOD UREA NITROGEN; Value: 43; Range: 7-18; Abnormal: Above high normal; Units: MG/DL; Status: F Test: CREATININE FOR GFR; Value: 5.33; Range: 0.70-1.30; Abnormal: Above high normal; Units: MG/DL; Status: F Test: GLOMERULAR FILTRATION RATE; Value: 11.1; Range: >42; Abnormal: Below low normal; Status: F Test: SODIUM LEVEL; Value: 140; Range: 136-145; Units: MEQ/L; Status: F Test: POTASSIUM SERUM; Value: 5.0; Range: 3.5-5.1; Units: MEQ/L; Status: F Test: CHLORIDE LEVEL; Value: 101; Range: 98-107; Units: MEQ/L; Status: F Test: CARBON DIOXIDE LEVEL; Value: 25; Range: 21-32; Units: MEQ/L; Status: F Test: ANION GAP; Value: 14; Range: 8-16; Units: MEQ/L; Status: F Test: CALCIUM LEVEL; Value: 8.9; Range: 8.8-10.2; Units: MG/DL; Status: F Test: AST/SGOT; Value: 33; Range: 15-37; Units: U/L; Status: F Test: ALT/SGPT; Value: 34; Range: 12-78; Units: U/L; Status: F Test: ALKALINE PHOSPHATASE; Value: 142; Range: 45-117; Abnormal: Above high normal; Units: U/L; Status: F Test: BILIRUBIN,TOTAL; Value: 0.4; Range: 0.2-1.0; Units: MG/DL; Status: F Test: TOTAL PROTEIN; Value: 7.0; Range: 6.4-8.2; Units: GM/DL; Status: F Test: ALBUMIN; Value: 3.5; Range: 3.2-5.2; Units: GM/DL; Status: F Test: ALBUMIN/GLOBULIN RATIO; Value: 1.00; Range: 1.00-1.93; Status: F Test Note: ; Units are mL/min/1.73 m2 Chronic Kidney Disease Staging per NKF: Stage I & II GFR >=60 Normal to Mildly Decreased Stage III GFR 30-59 Moderately Decreased Stage IV GFR 15-29 Severely Decreased Stage V GFR <15 Very Little GFR Left ESRD GFR <15 on NARROW FABRIC CALENDERER Lab Order: TROPONIN; 08/25/16 07:13 Test: TROPONIN I; Value: 2.12; Range: < 0.10; Abnormal: Above upper panic limits; Units: NG/ML; Status: F Test Note: ; Troponin I Reference Interval for I [place] LOCI: 99th Percentile= 0.00-0.045 ng/ml Risk Stratification: <= 0.10 ng/ml Decreased Risk for Adverse Clinical Events. 0.10-1.50 ng/ml Increased Risk for Adverse Clinical Events. Evaluation of additional criterion and/or repeat testing in 2-6 hours is suggested to rule out myocardial damage. >= 1.50 ng/ml Indicative of Myocardial Injury. Lab Order: MAGNESIUM LEVEL; 08/25/16 07:13 Test: MAGNESIUM LEVEL; Value: 2.1; Range: 1.8-2.4; Units: MG/DL; Status: F Lab Order: PHOSPHOROUS LEVEL; 08/25/16 07:13 Test: PHOSPHORUS LEVEL; Value: 6.2; Range: 2.5-4.9; Abnormal: Above high normal; Units: MG/DL; Status: F Lab Order: COMPLETE BLOOD COUNT; 08/25/16 11:35 Test: WHITE BLOOD COUNT; Value: 8.1; Range: 4.0-10.0; Units: K/mm3; Status: F Test: RED BLOOD COUNT; Value: 3.51; Range: 4.30-6.10; Abnormal: Below low normal; Units: M/mm3; Status: F Test: HEMOGLOBIN; Value: 12.2; Range: 14.0-18.0; Abnormal: Below low normal; Units: g/dl; Status: F Test: HEMATOCRIT; Value: 36.2; Range: 42.0-52.0; Abnormal: Below low normal; Units: %; Status: F Test: MEAN CORPUSCULAR VOLUME; Value: 103.2; Range: 80.0-96.0; Abnormal: Above high normal; Units: fl; Status: F Test: MEAN CORPUSCULAR HEMOGLOBIN; Value: 34.6; Range: 27.0-33.0; Abnormal: Above high normal; Units: pg; Status: F Test: MEAN CORPUSCULAR HGB CONC; Value: 33.6; Range: 32.0-36.5; Units: g/dl; Status: F Test: RED CELL DISTRIBUTION WIDTH; Value: 14.5; Range: 11.5-14.5; Units: %; Status: F Test: PLATELET COUNT, AUTOMATED; Value: 201; Range: 150-450; Units: k/mm3; Status: F Lab Order: PARTIAL THROMBOPLASTIN TIME; SPEC'M 08/25/16 11:35 Test: PARTIAL THROMBOPLASTIN TIME; Value: 41.0; Range: 26.6-37.1; Abnormal: Above high normal; Units: SECONDS; Status: F Radiology Order: EKG-ADULT Test: EKG-ADULT REASON FOR EXAMINATION: Chest Pain; Stationary ECG Study; [facility] - ED; ; Test Date: 2016-08-24; Pat Name: JOSE HAZEL Department:; Room: -; Gender: M 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 The heart is normal in size. The pulmonary vasculature is; normal in appearance. 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 alek 08/25 17:06 Patient left the ED. deg Signatures: Dispatcher [employer] EDMS Steve Tinoco MD MD pc Daly, Linda, Trade Sales Assistant Unit lbd Patricia Medrano, Trade Sales Assistant Unit deg Lina Monteiro, Reg Reg Blayne Bocanegra FNP FNP ke [place]mer[place], Jennifer,RN RN jo3 Lion Boyd, RN RN sid6 Avani Oliveira RN RN sls1 Mandeep Rosario Jennifer,RN RN js13 Sania Soto mm15 Corrections: (The following items were deleted from the chart) 08/24 11:27 11:25 MAGNESIUM LEVEL+LAB sent. [email or web address] EDWY 11:30 11:12 Pulse 122bpm; Monitor; Pulse Ox 98%; jo3 jo3 Chart Complete MTDD
[2016-08-27] MEDS: VITAMIN D 1,000 INTERNATIONAL UNITS TABLET PO SCH (20:37)
[2016-08-27] MEDS: SERTRALINE HCL 25 MG TABLET PO SCH (20:37)
[2016-08-27] MEDS: DOCUSATE SODIUM 100 MG CAP PO SCH (20:37)
[2016-08-28 05:02] VITALS: BP 162/73
[2016-08-28 06:37] LABS: BASO % 0.8 % (0.0-1.0); EOS # 0.4 K/mm3 (0.0-0.50); EOS % 5.6 % (0.0-3.0); LARGE UNSTAINED CELL # 0.1 K/mm3 (0.0-0.4); LARGE UNSTAINED CELL % 1.9 % (0.0-4.0); LYMPH # 0.9 K/mm3 (1.5-4.5); MEAN CORPUSCULAR HEMOGLOBIN 35.1 pg (27.0-33.0); MEAN CORPUSCULAR HGB CONC 33.8 g/dl (32.0-36.5); MEAN CORPUSCULAR VOLUME 103.9 fl (80.0-96.0); MONO # 0.6 K/mm3 (0.0-0.8); MONO % 8.1 % (0.0-5.0); NEUTROPHILS # 5.2 K/mm3 (1.8-7.7); NEUTROPHILS % 73.5 % (36.0-66.0); PLATELET COUNT, AUTOMATED 167 k/mm3 (150-450); RED CELL DISTRIBUTION WIDTH 14.6 % (11.5-14.5); WHITE BLOOD COUNT 7.1 K/mm3 (4.0-10.0)
[2016-08-28 06:42] LABS: ALBUMIN 2.9 GM/DL (3.2-5.2); ALBUMIN/GLOBULIN RATIO 0.83 (1.00-1.93); BILIRUBIN,TOTAL 0.4 MG/DL (0.2-1.0); CALCIUM LEVEL 8.4 MG/DL (8.8-10.2); CREATININE FOR GFR 6.79 MG/DL (0.70-1.30); GLOMERULAR FILTRATION RATE 8.4 (>42); MAGNESIUM LEVEL 1.9 MG/DL (1.8-2.4); POTASSIUM SERUM 4.7 MEQ/L (3.5-5.1); TOTAL PROTEIN 6.4 GM/DL (6.4-8.2)
[2016-08-28] MEDS: HEPARIN SOD (PORCINE) 5000 UNITS/ML VIAL IV PRN (06:54)
[2016-08-28 08:00] VITALS: BP 157/69
[2016-08-28] MEDS: DOCUSATE SODIUM 100 MG CAP PO SCH ×2 (08:15→21:49)
[2016-08-28] MEDS: LANTHANUM CARBONATE 500 MG CHEW TABLET PO SCH ×3 (08:15→17:10)
[2016-08-28] MEDS: CLOPIDOGREL 75 MG TAB PO SCH (08:15)
[2016-08-28] MEDS: CINACALCET 30 MG TAB (SENSIPAR) PO SCH (08:16)
[2016-08-28] MEDS: VITAMIN B COMPLEX/VIT C CAP PO SCH (08:16)
[2016-08-28] MEDS: ASPIRIN 81 MG ENTERIC TAB PO SCH (08:16)
[2016-08-28] MEDS: LISINOPRIL 10 MG TAB PO SCH ×2 (08:16→21:49)
[2016-08-28] MEDS: PANTOPRAZOLE 40MG TAB (PROTONIX) PO SCH (08:16)
[2016-08-28] MEDS: ATORVASTATIN 20 MG TAB PO SCH (08:16)
[2016-08-28] MEDS: ISOSORBIDE MON. (IMDUR) 30 MG XR TAB PO SCH (08:16)
[2016-08-28] MEDS: METOPROLOL TART 25 MG TABLET PO SCH ×2 (08:16→21:00)
[2016-08-28] MEDS: CALCIUM ACETATE 667 MG GELCAP PO SCH ×3 (08:16→17:10)
[2016-08-28] MEDS: IPRATROPIUM 0.06% NASAL SPRAY 15 ML (ATROVENT) SCH ×3 (08:17→21:49)
[2016-08-28 12:00] VITALS: BP 166/81
[2016-08-28 12:48] LABS: MEAN CORPUSCULAR HEMOGLOBIN 34.5 pg (27.0-33.0); MEAN CORPUSCULAR HGB CONC 33.2 g/dl (32.0-36.5); MEAN CORPUSCULAR VOLUME 104.1 fl (80.0-96.0); RED CELL DISTRIBUTION WIDTH 14.5 % (11.5-14.5)
--- NOTE | 2016-08-28 13:19 | IPNPDOC ---
Text Note Date of Service The patient was seen on 08/28/16. 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 He was experiencing typical chest pain until he received nitroglycerin. In the ER he was found to have a. fib with RVR and was given labetolol, after which he reverted to sinus rhythm. Patient was seen and examined at the bedside. Has no complaints today, reports no chest pain, SOB or palpitations. Objective: Vitals (See below) General: Lying in bed, no acute distress, comfortable, AAOx3 HEENT: NC, AT CVS: RRR, +S1S2 Lungs: Fair air entry b/l, -w/r/r Abdomen: Soft, ND, NT, +BSx4 Extremities: +PPx4, -edema, -calf tenderness Assessment and plan: 1. s/p Chest pain - possibly 2/2 NSTEMI - Presented with typical chest pain - Physical unrevealing - EKG revealed a.fib with RVR, but now in sinus with LBBB and LVH - Troponin have trended up to 2.26; have been trending down - Patient has refused any procedures at this time (Cardiac cath); he is aware of risks; which may include sudden from arrhythmias - Initially discussed with cardiology (Dr. Holt); plan is for medical management as an inpatient - c/w ASA, Metoprolol, Lisinopril, Plavix, atorvastatin and heparin drip - Will complete 72 hours total of heparin today - Will downgrade to med-surg and discharge to [place] tomorrow AM 2. A. fib with RVR - possibly 2/2 NSTEMI, possibly 2/2 medication non-compliance - Patient has reverted back to sinus - c/w rate control with metoprolol 25 BID - Patient has refused to be on full anticoagulation in the past as an outpatient - Patient is aware of risks of not continuing anticoagulation; including blood clots which may cause stroke or sudden 2. Compensated systolic and diastolic CHF (EF of 15% / Stage 2 diastolic dysfunction) - No evidence of exacerbation at this time - Patient has refused to have AICD / Biventricular PM placed in the past - c/w Lisinopril, Metoprolol 3. ESRD on HD (MWF) - Last HD session was on Monday - Next HD session as an outpatient is Monday - will DC with outpatient HD at 330PM - Dr. Neely (Nephrology) on consult - appreciate their input 4. Macrocytic anemia - Hg stable - will follow 5. DVT prophylaxis - will DC heparin drip - will start heparin SQ VS,Fishbone, I+O VS, Fishbone, I+O Laboratory Tests 08/28/16 06:01 Calcium Level 8.4 L, Aspartate Amino Transf (AST/SGOT) 24, Alanine Aminotransferase (ALT/SGPT) 25, Alkaline Phosphatase 114, Total Bilirubin 0.4, Total Protein 6.4, Albumin 2.9 L, Red Blood Count 3.09 L, Mean Corpuscular Volume 103.9 H, Mean Corpuscular Hemoglobin 35.1 H, Mean Corpuscular Hemoglobin Concent 33.8, Red Cell Distribution Width 14.6 H, Neutrophils (%) (Auto) 73.5 H , Lymphocytes (%) (Auto) 10.0 L, Monocytes (%) (Auto) 8.1 H, Eosinophils (%) ( Auto) 5.6 H, Basophils (%) (Auto) 0.8, Neutrophils # (Auto) 5.2, Lymphocytes # ( Auto) 0.9 L, Monocytes # (Auto) 0.6, Eosinophils # (Auto) 0.4, Basophils # (Auto ) 0.0 08/28/16 12:40 Red Blood Count 3.16 L, Mean Corpuscular Volume 104.1 H, Mean Corpuscular Hemoglobin 34.5 H, Mean Corpuscular Hemoglobin Concent 33.2, Red Cell Distribution Width 14.5 Vital Signs Date Time Temp Pulse Resp B/P Pulse Ox O2 Delivery O2 Flow Rate FiO2 08/28/16 12:00 96.4 60 166/81 18 Room Air 08/28/16 08:00 20 I&O- Last 24 Hours up to 6 AM 08/28/16 06:00 Intake Total 1692 ml Output Total 0 ml Balance 1692 ml IDA CARDONA MD Aug 28, 2016 13:19
[2016-08-28] MEDS: HEPARIN SOD (PORCINE) 5000 UNITS/ML VIAL SQ SCH ×2 (14:55→21:49)
[2016-08-28 16:00] VITALS: BP 156/74
[2016-08-28 18:20] VITALS: BP 168/82
[2016-08-28] MEDS: VITAMIN D 1,000 INTERNATIONAL UNITS TABLET PO SCH (21:49)
[2016-08-28] MEDS: SERTRALINE HCL 25 MG TABLET PO SCH (21:49)
[2016-08-28 22:00] VITALS: BP 170/86
[2016-08-29] MEDS: HEPARIN SOD (PORCINE) 5000 UNITS/ML VIAL SQ SCH (05:45)
[2016-08-29 06:00] VITALS: BP 182/80
[2016-08-29] MEDS ORDERED: ATOR1TAB21 PO ×2 (08:14→10:15)
[2016-08-29] MEDS ORDERED: CLOP75TA2 PO ×2 (08:14→10:15)
[2016-08-29] MEDS: VITAMIN B COMPLEX/VIT C CAP PO SCH (10:34)
[2016-08-29] MEDS: CLOPIDOGREL 75 MG TAB PO SCH (10:35)
[2016-08-29] MEDS: ISOSORBIDE MON. (IMDUR) 30 MG XR TAB PO SCH (10:35)
[2016-08-29] MEDS: CALCIUM ACETATE 667 MG GELCAP PO SCH (10:35)
[2016-08-29] MEDS: DOCUSATE SODIUM 100 MG CAP PO SCH (10:35)
[2016-08-29] MEDS: LANTHANUM CARBONATE 500 MG CHEW TABLET PO SCH (10:35)
[2016-08-29] MEDS: CINACALCET 30 MG TAB (SENSIPAR) PO SCH (10:35)
[2016-08-29] MEDS: PANTOPRAZOLE 40MG TAB (PROTONIX) PO SCH (10:36)
[2016-08-29] MEDS: ATORVASTATIN 20 MG TAB PO SCH (10:36)
[2016-08-29] MEDS: LISINOPRIL 10 MG TAB PO SCH (10:36)
[2016-08-29] MEDS: ASPIRIN 81 MG ENTERIC TAB PO SCH (10:36)
[2016-08-29] MEDS: METOPROLOL TART 25 MG TABLET PO SCH (10:36)
[2016-08-29 11:34] VITALS: BP 180/70
[2016-08-29] MEDS ORDERED: ATOR1TAB18 PO (11:40)
[2016-08-29 11:44] VITALS: BP 180/70
[2016-08-29] MEDS ORDERED: **hydrALAZINE** 10 MG TAB PO ONE (12:00)
--- NOTE | 2016-08-29 12:28 | IPN ---
DATE: 08/27/2016 SUBJECTIVE: Patient was seen and examined at the bedside today in the morning. He was very agitated. He did not want to stay in the hospital. He [facility] to [facility] to the [facility]. He does not want to continue the treatment for non-ST elevation myocardial infarction (NSTEMI), however his troponins are improving. He is currently on intravenous (IV) heparin drip. REVIEW OF SYSTEMS: Patient denies any fever, chills, rigors, headache, nausea, vomiting, chest pain, shortness of breath, pain in abdomen, constipation, or diarrhea. Rest of review of systems is negative. OBJECTIVE: VITAL SIGNS: Temperature 96.7 degrees Fahrenheit, blood pressure 138/65, pulse 65, respiratory rate 18, saturating at 96% on room air. Intake and output: The patient got hemodialysis done yesterday. Ultrafiltration with hemodialysis was 1.5 liters. Weight in the bed scale is 84.5 kg today. PHYSICAL EXAMINATION: GENERAL: Patient is awake, alert, oriented times three, laying in bed in no apparent distress. HEAD and NECK EXAM: Extraocular muscles intact. Pupils equally round and reactive to light. Mucous membranes are moist. Neck is supple, there is no jugular venous distention (JVD). CARDIOVASCULAR: S1, S2, regular rate. No murmur, rub, or gallop. RESPIRATORY: Chest is clear to auscultation bilaterally, bilateral equal air entry, no rales or rhonchi. ABDOMEN: Soft, positive bowel sounds, nontender, no ascites, no organomegaly. EXTREMITIES: No clubbing or cyanosis. Pulses are 2+. 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 Power is 5/5 in all extremities. LABORATORY REVIEW: CBC shows WBC 6.6, hemoglobin 10.9, platelets 180. BMP shows sodium 137, potassium 4.2, chloride 100, bicarbonate 26, BUN 39, creatinine 4.7, calcium 8.1, albumin 2.9, troponin has trended down to 1.19 as of yesterday. CURRENT MEDICATIONS: Patient's medications were all reviewed by me. He continues to be on IV heparin drip. There is no change in the medications today as compared with yesterday. ASSESSMENT: 81-year-old male with past medical history of end-stage renal disease on hemodialysis every Monday, Monday, Monday, admitted at this time because of acute congestive heart failure and non-ST elevation myocardial infarction ([place]) and atrial fibrillation with rapid ventricular response (RVR). PLAN: 1. End-stage renal disease on hemodialysis. Patient's regular hemodialysis days are Monday, Monday, Monday. He was dialyzed yesterday, he tolerated the hemodialysis procedure well. No urgent need of hemodialysis today. Next hemodialysis session will be on 08/29/2016. 2. Non-ST elevation myocardial infarction ([place]). Patient's troponins are trending down. He continues to be on IV heparin drip. Patient does not want any aggressive management or cardiac catheterizations. He is very agitated, he actually wants to stop all the treatment and go back to the [facility]. Continue aspirin, metoprolol, angiotensin-converting enzyme (DULCE) inhibitors, Plavix, and statins at this time. Primary team wants to give the patient heparin for 72 hours and send him back once he is hemodynamically stable. 3. Atrial fibrillation with rapid ventricular response (RVR). Patient is currently in sinus rhythm. He continues to be on oral metoprolol. Heart rate is well controlled at this time. 4. Anemia in end-stage renal disease. His hemoglobin is 10.9 which is acceptable at this time. Continue current dose of Mircera as outpatient. If patient stays, by Monday he would get a dose of Aranesp with hemodialysis.
--- NOTE | 2016-08-29 15:22 | DSES ---
DATE OF ADMISSION: 08/26/2016 DATE OF DISCHARGE: 08/29/2016 DICTATING PHYSICIAN: Dr. Malik Aquino ATTENDING PHYSICIAN: Dr. Malik Aquino CONSULTING PHYSICIAN: Dr. Yuliana Neely and Dr. Sosa PRIMARY CARE PHYSICIAN: Dr. Shaun Brown REFERRING PHYSICIAN: None. CONDITION ON DISCHARGE: Stable. FINAL DIAGNOSIS: Non ST elevation myocardial infarction. PROCEDURES: None. HISTORY OF PRESENT ILLNESS: The patient is a 81-year-old male with a past medical history of systolic and diastolic congestive heart failure (CHF) with an ejection fraction of 15%, atrial fibrillation, who refused anticoagulation in the past, end stage renal disease on hemodialysis Monday, Monday, and Monday, depression, gastroesophageal reflux disease (GERD), vitamin D deficiency, and moderate aortic valve stenosis, who presented to the emergency room from [facility] because of chest pain. He was experiencing typical chest pain until he received nitroglycerin. In the emergency room, he was found to have atrial fibrillation with rapid ventricular response and was given labetalol, after which he converted to normal sinus rhythm. HOSPITAL COURSE: 1. Status post chest pain, possibly secondary to non ST elevation myocardial infarction. Presented with typical type chest pain. Physical was unrevealing. EKG revealed atrial fibrillation with RVR, but after converting back to sinus, it revealed left bundle branch block with left ventricular hypertrophy. Troponin has been trending up to a maximum of 2.26 and then began to trend down. The patient has refused any procedures at this time, including cardiac catheterization. He was aware of the risks involved, which include sudden and arrhythmias. Initially, the case was discussed with Dr. Holt of cardiology. Plan was for medical management given that the patient did not want any procedures. Continue with aspirin, metoprolol and Lisinopril. He was started on Plavix, was given a loading dose and then continued on a daily dose and he was started on atorvastatin. Heparin drip was also instituted for 72 hours of his hospital course. Throughout his hospital course, he did not experiencing any more chest pain and he was discharged home with aspirin, metoprolol, lisinopril, Plavix and atorvastatin. He was advised to followup with his primary care provider and cardiology within the next 7 days. 2. Atrial fibrillation with RVR, possibly secondary to non ST elevation myocardial infarction, possibly secondary to medication noncompliance. The patient was reverted back to normal sinus rhythm. We will continue with rate control with metoprolol 25 mg twice a day. The patient has refused anticoagulation in the past as an outpatient. The patient is aware of the risks of not continuing anticoagulation, including blood clots, which may cause stroke or sudden . 3. Compensated systolic and diastolic congestive heart failure (CHF). No evidence of exacerbation at this time. The patient has refused to have AICD or biventricular pacemaker at this time. Continue with Lisinopril and metoprolol. 4. End stage renal disease on hemodialysis on Monday, Monday and Monday. Last hemodialysis session during this hospital course was on a Monday session. His next hemodialysis session is as an outpatient on Monday. The patient is being discharged home prior to his hemodialysis session, which is supposed to be at 3:30 p.m. He has been advised that he needs to strictly followup with his hemodialysis session and it is imperative that he does not miss any of these hemodialysis sessions. 5. Macrocytic anemia. Hemoglobin has been stable. We will follow. 6. Deep vein thrombosis (DVT) prophylaxis. After his heparin drip, he has been started on heparin subcutaneous. DISCHARGE MEDICATIONS: The patient is being discharged on the following medication list: - Tylenol 650 mg every four hours as needed for pain or fever - aspirin 81 mg by mouth daily - vitamin B complex one tablet by mouth daily - calcium acetate 2001 mg by mouth before food - carvedilol 6.25 mg by mouth twice a day - vitamin D 1000 units by mouth at night - Senokot 30 mg by mouth daily - hydralazine 10 mg by mouth four times a day - ipratropium bromide two sprays in each nostril three times a day - isosorbide mononitrate 30 mg by mouth daily - xanthum carbonate 2000 mg by mouth - Lisinopril 10 mg by mouth twice a day - loperamide 2 mg by mouth daily as needed for diarrhea - Nepro and Carb Steady one liquid by mouth at night - nitroglycerin 0.4 mg sublingual as needed for chest pain - Protonix 40 mg by mouth daily - promethazine 12.5 mg by mouth twice a day - sertraline 25 mg by mouth at night New medications prescribed include: - atorvastatin 80 mg by mouth daily - Plavix 75 mg by mouth daily DISCHARGE INSTRUCTIONS: The patient was advised to followup with his primary care provider and cardiology within the next 7 days. He has been advised to remain compliant with treatment plan and medications and return to the emergency room if he experiences any problems. Time spent on discharge: 35 minutes.
--- NOTE | 2016-08-29 18:47 | IPN ---
DATE: 08/28/2016 SUBJECTIVE: The patient was seen and examined at the bedside today in the morning. He was feeling much better. He continues to be on IV heparin. Today is the last day of IV heparin. He denies any chest pain or shortness of breath. His troponins had trended down yesterday. REVIEW OF SYSTEMS: The patient denies any fevers, chills, rigors, headache, nausea, vomiting, chest pain, shortness of breath, pain in abdomen, constipation or diarrhea. The rest of the review of systems is negative. OBJECTIVE: VITAL SIGNS: Temperature is 96.1 degrees Fahrenheit. Blood pressure is 156/74. Pulse is 53, respiratory rate of 18, saturating 96% on room air. Intake and output: There is no urine output recorded. Last hemodialysis was on 08/26. Weight in the bed scale is 84.8 kg. PHYSICAL EXAMINATION: GENERAL: The patient is awake, alert and oriented times three. Laying in bed. No apparent distress. HEENT: Extraocular muscles intact. Pupils equally round and reactive to light. Mucous membranes are moist. Neck is supple. There is no jugular venous distention (JVD). Cardiovascular S1, S2, regular rate. No murmur, rub or gallop. RESPIRATORY: Chest is clear to auscultation bilaterally. Bilateral clear entry. No rales or rhonchi. ABDOMEN: Soft, positive bowel sounds. Nontender. No ascites. No organomegaly. EXTREMITIES: No clubbing or cyanosis. Pulses are 2+. SKIN: No rashes or ulcers. CENTRAL NERVOUS SYSTEM: No focal neurological deficits. Power is 5/5 in all extremities. LAB REVIEW: CBC showed a WBC of 8, hemoglobin 10.9, platelets of 165. Bm[p showed sodium 136, potassium 4.7, chloride 100, bicarbonate 24, BUN 57, creatinine 6.7. Calcium is 8.4. Albumin is 2.9. CURRENT MEDICATIONS: The patient's medications were all reviewed by me. Today is the last day of IV heparin. There is no other change in the medications today as compared with yesterday. ASSESSMENT: 81-year-old male with past medical history of end-stage renal disease, on hemodialysis admitted this time with non-ST wave elevation myocardial infarction ([place]) and atrial fibrillation with rapid ventricular response (RVR). Nephrology service following the patient for management of end-stage renal disease and hemodialysis. PLAN: 1. End-stage renal disease, on hemodialysis. The patient's regular dialysis days are Monday, Monday, Monday. He gets dialyzed at around 3:30 in the afternoon. No urgent need of hemodialysis today. If patient gets discharged tomorrow early in the morning, he can be dialyzed as outpatient. 2. Non-ST wave elevation myocardial infarction (ME). The patient has absolutely refused any aggressive management including catheterization. He is being managed with medications. His IV heparin drip will be started in the afternoon. His troponins had trended down yesterday. Continue the current dose of aspirin, Plavix, beta blockers and angiotensin-converting enzyme (DULCE) inhibitors. 3. Discharge planning. It is okay to discharge the patient from a nephrology standpoint tomorrow morning. He can be dialyzed as outpatient tomorrow at dialysis center. Plan of care was discussed with the primary medical team.
--- NOTE | 2016-08-30 10:25 | IPN ---
DATE: 08/29/2016 SUBJECTIVE: The patient was seen and examined at the bedside today in the morning. He feels better. His heparin drip was discontinued yesterday. Patient reports that he had some chest pressure yesterday but that improved after he moved his bowels and started passing gas. REVIEW OF SYSTEMS: Patient denies any fever, chills, rigors, headache, nausea, vomiting, chest pain, shortness of breath, pain in abdomen, or diarrhea. Rest of review of systems is negative. OBJECTIVE: VITAL SIGNS: Temperature 97.6 degrees Fahrenheit, blood pressure 180/70, pulse 57, respiratory rate 18, saturating 100% on room air. Intake and output: There is no urine output recorded. Weight in the bed scale is 86.3 kg. PHYSICAL EXAMINATION: GENERAL: Patient is awake, alert, oriented times three, laying in bed in no apparent distress. HEAD and NECK EXAM: Extraocular muscles intact, pupils equally round and reactive to light. Mucous membranes are moist. Neck is supple, there is no jugular venous distention (JVD). CARDIOVASCULAR: S1, S2, regular rate, no murmur, rub, or gallop. RESPIRATORY: Chest is clear to auscultation bilaterally, bilateral equal air entry, no rales or rhonchi. ABDOMEN: Soft, positive bowel sounds, nontender. No ascites, no organomegaly. EXTREMITIES: No clubbing or cyanosis, pulses are 2+. 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 Power is 5/5 in all extremities. LABORATORY REVIEW: CBC shows hemoglobin 10.9, platelets 165. BMP shows sodium 136, potassium 4.7, BUN 57, creatinine 6.7, calcium 8.4. CURRENT MEDICATIONS: Patient's medications were all reviewed by me. There is no change in the medications today as compared with yesterday, however he was given a dose of hydralazine 10 mg by mouth because of high blood pressures. ASSESSMENT: 81-year-old male with past medical history of end-stage renal disease on hemodialysis, admitted at this time with atrial fibrillation with rapid ventricular response (RVR), non-ST elevation myocardial infarction (MD). He refused interventional management. Status post intravenous (IV) heparin for 72 hours. PLAN: 1. End-stage renal disease on hemodialysis. Today is his regular day of dialysis as per Monday, Monday, Monday schedule, however patient's outpatient schedule is 3:30. If patient is otherwise stable to be discharged, he can get dialyzed as outpatient. 2. Non-ST elevation myocardial infarction (MD). Patient absolutely refused any aggressive management and intervention. He got intravenous (IV) heparin for 72 hours. Continue current dose of aspirin, Plavix, beta blockers, angiotensin-converting enzyme (DULCE) inhibitors, and statins. 3. Hypertension. Continue current dose of isosorbide 30 mg by mouth daily, lisinopril 10 mg by mouth twice a day, metoprolol 25 mg by mouth twice a day. Patient will get dialysis and ultrafiltration will also help lower blood pressure. If patient's blood pressure remains elevated, we shall increase his lisinopril dose as outpatient. 4. Discharge planning. It is okay to discharge the patient from nephrology standpoint. I informed the outpatient dialysis center he will be dialyzed as outpatient in the afternoon. Plan of care was discussed with the hospitalist team, Dr. Malik Aquino.
== END 2016-08-29 11:55 | DRG 280 ==
LOC: M ED 10:57 → M ED INP 12:52 → M PCU 08-25 16:57 → OBSVTOIN 08-26 10:12 → M MS5PR 08-28 18:12
PROVIDERS: ADMIT Internal Medicine; ATTEND Internal Medicine
PROC: 5A1D60Z (ICD-10-PCS; principal; 2016-08-26)
DX: I21.4 Non-ST elevation (NSTEMI) myocardial infarction (principal); N18.6 End stage renal disease; I50.42 Chronic combined systolic (congestive) and diastolic (congestive) heart failure; I13.2 Hypertensive heart and chronic kidney disease with heart failure and with stage 5 chronic kidney disease, or end stage renal disease; I48.0 Paroxysmal atrial fibrillation; F32.9 Major depressive disorder, single episode, unspecified; K21.9 Gastro-esophageal reflux disease without esophagitis; E55.9 Vitamin D deficiency, unspecified; I35.0 Nonrheumatic aortic (valve) stenosis; D63.1 Anemia in chronic kidney disease; Z66 Do not resuscitate; Z99.2 Dependence on renal dialysis; Z79.82 Long term (current) use of aspirin; Z79.899 Other long term (current) drug therapy; Z91.11 Patient's noncompliance with dietary regimen; Z91.14 Patient's other noncompliance with medication regimen

== ENCOUNTER 2017-02-03 07:00 | Emergency (ER) | payer MEDICARE ==
[~2017-02-03 07:00] MED LIST changes: -ACET-654 PO; +ACET1TAB17 PO; +ATOR1TAB21 PO; +ATOR80TA59 PO; +CALC1CAP PO; +CINA30TA PO; +CLOP75TA2 PO; +HYDR-3911 PO; -HYDR-4267 PO; +HYDR10TAB PO; +IMOD2TAB16 PO; +PROM12.55 PO; -PROM125TA PO; +RENA1TAB PO; -RENA800T7 PO; +SERT25TA PO; -SERT25TA85 PO
[2017-02-03] MEDS ORDERED: LOPR1TAB6 PO (07:21)
[2017-02-03 07:48] LABS: MEAN CORPUSCULAR HEMOGLOBIN 35.9 pg (27.0-33.0); MEAN CORPUSCULAR HGB CONC 32.8 g/dl (32.0-36.5); MEAN CORPUSCULAR VOLUME 109.2 fl (80.0-96.0); RED CELL DISTRIBUTION WIDTH 15.7 % (11.5-14.5); WHITE BLOOD COUNT 9.4 K/mm3 (4.0-10.0)
[2017-02-03 07:51] LABS: MAGNESIUM LEVEL 2.2 MG/DL (1.8-2.4)
[2017-02-03 07:59] LABS: ALBUMIN 3.1 GM/DL (3.2-5.2); BILIRUBIN,TOTAL 0.4 MG/DL (0.2-1.0); CALCIUM LEVEL 9.6 MG/DL (8.8-10.2); CREATININE FOR GFR 6.92 MG/DL (0.70-1.30); GLOMERULAR FILTRATION RATE 8.2 (>42); TOTAL PROTEIN 6.2 GM/DL (6.4-8.2)
[2017-02-03 08:00] LABS: POTASSIUM SERUM 5.8 MEQ/L (3.5-5.1)
[2017-02-03] MEDS ORDERED: CALCIUM CHLORIDE 10% 1 GM in D5W 100 ML IV ONE (08:00)
[2017-02-03 08:15] VITALS: BP 137/52
--- NOTE | 2017-02-03 08:17 | REP ---
Clinical: Bradycardia. Comparison: 08/24/2016. Findings: Double-lumen dialysis catheter with tips in the SVC/right atrium. Mediastinum and cardiac silhouette are stable and within normal limits. The lung colbert are clear. No focal consolidation, obvious effusion, or pneumothorax. Skeletal structures intact. Impression: No acute cardiopulmonary process or focal consolidation appreciated. Signed by Levi Steele MD 02/03/2017 08:07 A
--- NOTE | 2017-02-05 02:11 | ECGEPIP ---
Stationary ECG Study [facility] - ED Test Date: 2017-02-03 Pat Name: LOKESH TIM Department: Room: - Gender: M Medical Educator: sav : [id number] Requested By: Gwen Perez Order Number: [id number] Reading MD: Steve Tinoco Measurements Intervals [place] Rate: 23 P: PA: 0 QRS: -40 QRSD: 117 T: -90 QT: 661 QTc: 410 Interpretive Statements SINUS RHYTHM WITH HIGH GRADE AV BLOCK POSSIBLE RIGHT VENTRICULAR CONDUCTION DELAY INFERIOR MYOCARDIAL INFARCTION, OF INDETERMINATE AGE ANTEROSEPTAL MYOCARDIAL INFARCTION, OF INDETERMINATE AGE MODERATE T-WAVE ABNORMALITY, CONSIDER LATERAL ISCHEMIA Electronically Signed On 02-05-2017 2:10:41 EDT by Steve Tinoco
== END 2017-02-03 08:18 | disposition short-term general hospital (02) ==
LOC: M ED 07:00 → EDBD 07:00 → EDSEX 07:00 → M ED 08:18
DX: I44.30 Unspecified atrioventricular block (principal); I48.91 Unspecified atrial fibrillation; I25.10 Atherosclerotic heart disease of native coronary artery without angina pectoris; I50.9 Heart failure, unspecified; E11.9 Type 2 diabetes mellitus without complications; I12.0 Hypertensive chronic kidney disease with stage 5 chronic kidney disease or end stage renal disease; N18.6 End stage renal disease; Z99.2 Dependence on renal dialysis; D63.1 Anemia in chronic kidney disease

== ENCOUNTER 2018-11-17 21:15 | Emergency (ER) | payer MEDICARE ==
[~2018-11-17 21:15] MED LIST changes: -ACET1TAB17 PO; +ACET1TAB55 PO; -ASPI1TAB PO; +ASPI81TA26 PO; -CINA30TA PO; +CINA30TA4 PO; -DOXA1TAB71 PO; +DOXA2TAB3 PO; +LOPR1TAB6 PO; +NEPH5CAP PO; -NEPHTA PO; -PANT40TA2 PO; +PANT40TA3 PO; -PROM12.55 PO; +PROM12.56 PO; +SENN1TAB41 PO; -SENN8.6T7 PO; -SERT25TA PO; +SERT25TA85 PO
== END 2018-11-17 22:42 | disposition expired ==
LOC: M ED 21:15